=== PATIENT | male | born 1985 | race Caucasian/White ===

== ENCOUNTER 2017-03-08 03:14 | Emergency (ER) | payer OTHER ==
[~2017-03-08] VITALS: Ht 177.8 cm; Wt 79.4 kg
[2017-03-08] MEDS ORDERED: HUMALOG100 UNIT/1 SUBQ (03:27)
[2017-03-08] MEDS ORDERED: LANTUS100 UNIT/M SUBQ (03:28)
[2017-03-08] MEDS ORDERED: PAXIL10 MG PO (03:28)
[2017-03-08] MEDS ORDERED: CLONAZEPAM 0.50.5 M1 (03:37)
[2017-03-08 03:59] LABS: HEMATOCRIT 46.1 % (42.0-52.0); HEMOGLOBIN 15.9 gm/dL (14.0-18.0); MCH 31.2 pg (26.0-34.0); MCHC 34.5 g/dL (28.0-37.0); MCV 90.4 fL (80.0-100.0); RBC 5.1 mil/uL (4.50-6.00); RDW 13.2 % (10.5-14.5); WBC 11.1 thou/uL (4.0-11.0)
[2017-03-08 04:03] LABS: CALCIUM 9.1 mg/dL (8.5-10.1)
[2017-03-08 04:08] LABS: ALBUMIN 3.1 g/dL (3.4-5.0); TOTAL BILIRUBIN 0.3 mg/dL (<0.1-1.0); TOTAL PROTEIN 7.1 g/dL (6.4-8.2)
[2017-03-08 04:55] VITALS: BP 142/94
== END 2017-03-08 04:59 | disposition home or self-care (01) ==
LOC: ER 03:14
PROVIDERS: Emergency Medicine
DX: R19.7 Diarrhea, unspecified (principal); R05 Cough; E11.9 Type 2 diabetes mellitus without complications; Z79.4 Long term (current) use of insulin

== ENCOUNTER 2017-06-25 23:07 | Emergency (ER) | payer OTHER ==
[~2017-06-25] VITALS: Ht 175.3 cm; Wt 79.4 kg
[~2017-06-25 23:07] MED LIST: CLONAZEPAM 0.50.5 M1; HUMALOG100 UNIT/1 SUBQ; LANTUS100 UNIT/M SUBQ; PAXIL10 MG PO
[2017-06-25 23:52] LABS: ABSOLUTE NEUTROPHILS 7.4 thou/uL (1.4-8.2); EOSINOPHILS 1.8 % (0.0-3.0); HEMATOCRIT 44.2 % (42.0-52.0); HEMOGLOBIN 15.1 gm/dL (14.0-18.0); MCH 30.6 pg (26.0-34.0); MCHC 34.2 g/dL (28.0-37.0); MCV 89.5 fL (80.0-100.0); MONOCYTES 5.9 % (1.0-8.0); PLATELET COUNT 196 thou/uL (150-400); POLYS 79.3 % (36.0-66.0); RBC 4.94 mil/uL (4.50-6.00); RDW 14.3 % (10.5-14.5); WBC 9.4 thou/uL (4.0-11.0)
[2017-06-26 00:01] LABS: CALCIUM 9.8 mg/dL (8.5-10.1); CREATININE 1.4 mg/dL (0.7-1.3); POTASSIUM 4.2 mmol/L (3.5-5.1)
[2017-06-26 00:04] LABS: URINE BILIRUBIN NEGATIVE (Negative); URINE BLOOD 2+ (Negative); URINE CLARITY CLEAR; URINE COLOR YELLOW; URINE GLUCOSE-RANDOM* 3+ (Negative); URINE KETONES TRACE (Negative); URINE LEUKOCYTES-REFLEX NEGATIVE (Negative); URINE NITRITE-REFLEX NEGATIVE (Negative); URINE PROTEIN (DIPSTICK) 2+ (Negative); URINE SPECIFIC GRAVITY >= 1.030 (1.005-1.035); URINE UROBILINOGEN 0.2 E.U./dl (0.2-1.0)
[2017-06-26 00:06] LABS: ALBUMIN 3.6 g/dL (3.4-5.0); TOTAL BILIRUBIN 0.3 mg/dL (<0.1-1.0); TOTAL PROTEIN 8.4 g/dL (6.4-8.2)
[2017-06-26 00:14] LABS: CASTS None Seen /LPF (None Seen); MUCUS 0-3 Light strn/LPF (None Seen); SQUAMOUS None Seen /LPF (0-3)
[2017-06-26 00:15] LABS: BACTERIA-REFLEX None Seen /HPF (None Seen); CRYSTALS None Seen /LPF (None Seen); URINE RBC 3-10 Few /HPF (0-2)
[2017-06-26] MEDS ORDERED: ONDANSETRON HCL4 M2 PO (01:43)
[2017-06-26] MEDS ORDERED: FLOMAX0.4 MG PO (01:43)
[2017-06-26] MEDS ORDERED: NORCO 5-325 TA1 EACH PO (01:43)
[2017-06-26 02:02] VITALS: BP 147/93
== END 2017-06-26 02:03 | disposition home or self-care (01) ==
LOC: ER 23:07
PROVIDERS: Emergency Medicine
DX: N20.0 Calculus of kidney (principal); E11.9 Type 2 diabetes mellitus without complications; I48.91 Unspecified atrial fibrillation

== ENCOUNTER 2018-10-26 18:46 | Inpatient (IN) | payer OTHER ==
[~2018-10-26] VITALS: Ht 348 cm; Wt 77.1 kg
--- NOTE | ~2018-10-26 | HC ---
[facility] [place] [address] CONSULTATION Name: CARLOS STAHL Room #: 459-P ADM IN M.R.#: [id number] Admission: 10/26/18 Attend Phys: Holden Lee MD Discharge: Date of : 83 Report #: [id number] THIS REPORT FOR: //name// CC: JONNATHAN physician/PCP Holden Lee DATE OF SERVICE: 10/27/2018 WOUND CARE CONSULTATION NOTE REASON FOR CONSULTATION: A 33-year-old patient with diabetes mellitus type 1 and diabetic foot ulcers of right and left foot with history of MRSA. HISTORY OF PRESENT ILLNESS: The patient is a 33-year-old gentleman who works in the [employer] business. He is self-employed. He has been a patient at [facility] with treatment for diabetic ulcers of his feet, diagnosed with MRSA and treated with IV antibiotics. He had no followup treatment there. He presented to the Emergency Room with increased redness, swelling and tenderness of the feet, particularly the left and right great toe and the right plantar foot. White blood count is 11,600. The patient has been admitted by Dr. Lee. He was placed on intravenous vancomycin. Wound cultures have been taken. Wound care is consulted for his diabetic foot wounds. PAST MEDICAL HISTORY: 1. Diabetes mellitus type 1 without insulin pump. 2. History of MRSA of foot wounds. 3. Chronic nonhealing diabetic foot ulcers. 4. Atrial fibrillation with ablation. 5. History of kidney stones. 6. Cataracts. ALLERGIES: DYE. RADIOGRAPHIC TESTS: X-ray of the feet shows no bony abnormalities. MEDICATIONS: Include: 1. Levemir insulin. 2. Humalog. 3. Paxil. 4. Clonazepam. 5. Oxycodone. 6. Neurontin. PHYSICAL EXAMINATION: GENERAL: Shows a healthy, well-appearing young male. HEENT: Mucous membranes moist. [facility] [address] [place] [address] CONSULTATION Name: CARLOS STAHL Room #: 459-P ADM IN [facility].#: [id number] Admission: 10/26/18 Attend Phys: Holden Lee MD Discharge: Date of : 83 Report #: [id number] NECK: Supple. ABDOMEN: Soft and nondistended. HEART: Shows regular rate and rhythm. EXTREMITIES: Shows bilaterally symmetrical edema and erythema of the great toes, each great toe is swollen to approximately 50% greater than the normal size. Absence of nail bed of the right and left toe, the patient denies the nails have been removed. Diabetic foot ulcers are present on the plantar surface of both the right and left great toe with 1.5 cm x 1 cm ulcers with central deeper area, but no exposed bone. These are bilaterally symmetrical. The patient also has some erythema and erosion to dorsal surface of the nails of both toes and both feet. IMPRESSION: 1. Diabetes mellitus type 1 with nonhealing bilaterally symmetrical diabetic foot ulcers of the right and left great toe. 2. Cellulitis of the right and left great toe. 3. History of methicillin-resistant Staphylococcus aureus of the foot wounds. PLAN: Order topical Bactroban. Foam borders to both feet. Order wound cultures of both feet. Order an MRI of both feet to rule out osteomyelitis. Plain films were negative. Intravenous vancomycin. Dr. Cordero is to consider consulting podiatrists of choice. By: [id number] [id number] Federico Carranza MD /nt
[~2018-10-26 18:46] MED LIST changes: +FLOMAX0.4 MG PO; +NORCO 5-325 TA1 EACH PO; +ONDANSETRON HCL4 M2 PO
[2018-10-26 18:48] VITALS: BP 148/108
[2018-10-26] MEDS ORDERED: NEURONTIN600 MG PO (18:54)
[2018-10-26] MEDS ORDERED: OXYCODONE HCL E15 MG PO (18:54)
[2018-10-26 19:53] LABS: ABSOLUTE NEUTROPHILS 8.3 thou/uL (1.4-8.2); BASOPHILS 0.8 % (0.0-2.0); EOSINOPHILS 2.3 % (0.0-3.0); HEMATOCRIT 40.9 % (42.0-52.0); LYMPHOCYTES 14.8 % (24.0-44.0); MCH 30.5 pg (26.0-34.0); MCHC 34.3 g/dL (28.0-37.0); MONOCYTES 10.3 % (1.0-8.0); PLATELET COUNT 229 thou/uL (150-400); POLYS 71.8 % (36.0-66.0); RDW 14.1 % (10.5-14.5); WBC 11.6 thou/uL (4.0-11.0)
[2018-10-26 19:57] LABS: CALCIUM 9.8 mg/dL (8.5-10.1); CREATININE 1.5 mg/dL (0.7-1.3); POTASSIUM 4.1 mmol/L (3.5-5.1)
[2018-10-26 20:03] LABS: TOTAL BILIRUBIN 0.3 mg/dL (<0.1-1.0); TOTAL PROTEIN 8.6 g/dL (6.4-8.2)
[2018-10-26 20:05] LABS: TROPONIN-I <0.06 ng/mL (<0.06)
[2018-10-26 20:26] LABS: URINE BLOOD 1+ (Negative); URINE CLARITY CLEAR; URINE COLOR YELLOW; URINE GLUCOSE-RANDOM* 3+ (Negative); URINE KETONES 1+ (Negative); URINE LEUKOCYTES-REFLEX NEGATIVE (Negative); URINE NITRITE-REFLEX NEGATIVE (Negative); URINE PROTEIN (DIPSTICK) 2+ (Negative); URINE SPECIFIC GRAVITY >= 1.030 (1.005-1.035); URINE UROBILINOGEN 0.2 E.U./dl (0.2-1.0)
[2018-10-26 20:31] LABS: ICTOTEST (BILI CONFIRMATORY) Negative (Negative); URINE BILIRUBIN NEGATIVE (Negative)
[2018-10-26 20:37] LABS: CASTS None Seen /LPF (None Seen); MUCUS 0-3 Light strn/LPF (None Seen); SQUAMOUS None Seen /LPF (0-3)
[2018-10-26 20:38] LABS: BACTERIA-REFLEX None Seen /HPF (None Seen); CRYSTALS None Seen /LPF (None Seen); URINE RBC 0-2 Rare /HPF (0-2); URINE WBC-REFLEX None Seen /HPF (0-5)
--- NOTE | 2018-10-26 22:15 | NUR ---
MEDIC KECIA WAS ABOUT TO GIVE INSULIN TO THE PT, WHEN HE INFORMED HER THAT HE ALREADY HAD TAKEN HIS OWN. KECIA STATED THAT SHE PREVIOUSLY INFORMED THE PT TO NOT ADMINISTER ANY OF HIS OWN MEDICATIONS. ARMORED CAR DRIVER NOTIFIED, AND SECURITY NOTIFED. SECURITY SEARCHED THE PT'S BELONGINGS.
[2018-10-26 23:14] VITALS: BP 143/104
[2018-10-26 23:22] VITALS: BP 151/98
[2018-10-26 23:47] VITALS: BP 151/98
[2018-10-26] MEDS ORDERED: LEVEMIR SUBQ (23:58)
--- NOTE | 2018-10-27 03:58 | NUR ---
ADMITTED FROM ER UNDER 'S CARE. AXOX4. BLE DIABERIC ULCERS. PICTURES TAKEN, INITIAL TX DONE. ISOLATIONB FOR MRSA. SEEN BY DIRECTOR [employer]ER[employer]ION PROSTHETIC LAB TECHNICIAN FOR NIKKIE. HOME MEDICATION SENT TO PHARMACY. NO S/S ACUTE DISTRESS NOTED OR REPORTED AT THIS TIME. WILL CONT TO MONITOR FOR ANY CHANGES IN CONDITION.
[2018-10-27 05:04] VITALS: BP 154/106
[2018-10-27 08:30] VITALS: BP 168/105
--- NOTE | 2018-10-27 11:45 | EKG ---
[address] [place] [address] ELECTROCARDIOGRAM REPORT Name: CARLOS STAHL Room #: 459-P ADM IN M.R.#: [id number] Admission: 10/26/18 Attend Phys: Holden Lee MD Discharge: Date of : 83 Report #: [id number] THIS REPORT FOR: //name// [facility] ED Test Date: 2018-10-26 Test Time: 19:33:38 Pat Name: CARLOS STAHL Department: Room: 45 Gender: M Geophysicist: JOSÉ MIGUEL : 1985 Requested By: Leeann Camacho Order Number: [id number] MD: Silvino Russ Measurements Intervals Sweet Rate: 121 P: 48 NM: 133 QRS: 44 QRSD: 79 T: 12 QT: 303 QTc: 430 Interpretive Statements Sinus tachycardia Probable left atrial enlargement Low voltage, precordial leads No previous ECG available for comparison Electronically Signed On 10-27-2018 11:45:06 CDT by Silvino Russ [email or web address] <ELECTRONICALLY SIGNED> By: Silvino Russ MD 10/27/18 1145 1933 1933 Silvino Russ MD /MADAY
--- NOTE | 2018-10-27 13:30 | NUR ---
ASSUMED CARE OF PATIENT AT 0715, PATIENT ALERT AND ORIENTED X 4. PATIENT UP AD MAXWELL IN HIS ROOM. PATIENT HAS BILATERAL FOOT WOUNDS. MRSA ISOLATION. PATIENT HAS BBEN VERY FUSSY AND IRRITABLE. PATIENT HAS REFUSED INSULIN DOSES, AND NON-COMPLIANT WITH MEALS. PATIENT WANT REGULAR DIET, DR BENDER STATES NO. PATIENT HAS DRESSINGS TO BILATERAL FEET, WOUND DOCTOR SAW PATIENT THIS AFTERNOON, DRESSING CHANGED. WOUND CARE DOCTOR ORDERED MRI OF BILATERAL FEET, WILL BE DONE TOMORROW PER MRI. PATIENT HAS LEFT FOREARM IV, RECEIVED VANCO IV. WILL CONTINUE TO MONITOR.
[2018-10-27 15:00] VITALS: BP 145/101
[2018-10-27 19:42] VITALS: BP 150/103
[2018-10-28 01:05] LABS: GLYCOHEMOGLOBIN (HGB A1C) 9.1 % (4.8-5.6)
--- NOTE | 2018-10-28 04:26 | NUR ---
PATIENT ALERT AND ORIENTED X4. UP ADLIB IN ROOM. DENIES PAIN. DRESSINGS CHANGED ON BILATERAL FEET. BLOOD SUGAR AT 2100 WAS 190 AND PATIENT WAS TO RECEIVE STANDING ORDER OF LANTUS 30UNITS AND 8UNITS OF LISPRO PER SLIDING SCALE. HOWEVER, PATIENT REFUSED 8UNITS OF LISPRO. AT APPROX 0045 PATIENT CALLED THIS NURSE AND STATED THAT HIS BS WAS UP AND HE COULD FEEL IT AND REQUESTED THAT HIS BS BE TAKEN AGAIN. THIS WAS DONE AND IT WAS 316. PATIENT STATED THAT HE WOULD TAKE THE 8UNITS OF LISPRO THAT HE HAD REFUSED EARLIER AND THIS WAS GIVEN. PATIENT REMAINS UPSET ABOUT ANOTHER PATIENT COMING IN HIS BATHROOM WHILE HE WAS TAKING A SHOWER DURING THE DAY AND STATES HE IS NOT WANTING TO GO TO SLEEP. THIS NURSE ASSURED HIM THAT THE PATIENT WAS ASLEEP AND WAS MONITORED AND THAT HE HIMSELF COULD GET A GOOD NIGHTS SLEEP. PATIENT HAD VISITORS IN THE EARLY EVENING AND REMAINS IN ISOLATION AT THIS TIME. WILL MONITOR.
[2018-10-28 09:59] VITALS: BP 133/92
--- NOTE | 2018-10-28 11:51 | NUR ---
Nutrition: Seen per consult for diet instructions. Pt on a carb controlled diet, having a difficult time with diet, wanting regular. To remain on strict diet though. BG 150 this AM, but ranged 140-425 mg/dl per 10/27 (average BG yesterday 284 per 6 readings). A1c high at 9.1%. On 30 units HS Lantus, SSI. Here w/ BLE wounds (DM foot wounds). At a healthy wt, BMI 23.7. Great appetite. Focused on need to evenly distribute carbs, as pt eating very high carb breakfast, then super light carb lunches/dinners w/ salmon, chicken and lots of green vegetables. Suggested ways to lower CHO, add protein though eggs, nut butter in the AM. He understands that carbs break down into sugars and raise BGs, understands food labels. Took multiple reinforcement to inform him what he thought was high protein, is high carb. See RD education note. With long 20-30 min discussion and education complete, low nutrition risk.
--- NOTE | 2018-10-28 13:58 | NUR ---
ORDERS RECIEVED FOR EVAL AND TREAT. Pt IS UP AD MAXWELL. SPOKE WITH Pt WHO STATES HAVING NO DIFFICULTY WITH ANY MOBILITY AND DOESN'T NEED A P.T. EVAL. Pt DECLINING FORMAL P.T. EVAL BUT PER NURSING HAVING NO DIFFICULTY WITH MOBILITY
--- NOTE | 2018-10-28 15:02 | NUR ---
ORDER REC'D FOR OT EVAL AND TREAT. EVAL INITIATED W/EXPLANATION OF OCCUPATIONAL THERAPY. PATIENT DENIES NEED FOR OT STATING THAT HE IS INDEPENDENT W/SELFCARE AND FUNCTIONAL MOBILITY. NSG NOTES REFLECT THIS AND PHYSICAL THERAPY HAS DISCHARGED. WILL D/C OT.
[2018-10-28 19:28] VITALS: BP 142/102
--- NOTE | 2018-10-28 19:40 | NUR ---
PT STABLE THROUGHOUT SHIFT. PT VERY INSISTENT ON WHEN HIS BLOOD SUGAR IS CHECKED AND HOW MUCH INSULIN HE SHOULD HAVE. PT NONCOMPLIANT WITH BOTH INSULIN AND DIET (ORDERED PIZZA WHEN HIS MOTHER ARRIVED). PT VERY BELLIGERENT WHIN NURSE ATTEMPTS FO EDUCATE REGARDING TIMING AND DOSAGE OF ACCU CHECKS AND INSULIN. C/O PAIN, ADDRESSED WITH MEDICATION.
--- NOTE | 2018-10-29 03:34 | NUR ---
PATIENT LEFT AND RIGHT GREAT TOE DRESSING IS C/D/I. PATIENT NON COMPLIANT WITH INSULIN BLOOD SUGAR WAS 315 PATIENT REQUESTED 1/2 OF SHORT ACTING INSULIN. PATIENT HAD LANTUS PER ORDER. PATIENT HAD A SHOWER. PATIENT IN BED ASLEEP AT THIS TIME BREATHING REGULAR AND UNLABOURED.
[2018-10-29 07:34] VITALS: BP 123/57
[2018-10-29 08:05] VITALS: BP 142/98
[2018-10-29 08:42] LABS: HEMATOCRIT 38.1 % (42.0-52.0); HEMOGLOBIN 12.9 gm/dL (14.0-18.0); MCH 29.9 pg (26.0-34.0); MCHC 33.8 g/dL (28.0-37.0); MCV 88.6 fL (80.0-100.0); RBC 4.3 mil/uL (4.50-6.00); RDW 13.4 % (10.5-14.5); WBC 5.9 thou/uL (4.0-11.0)
[2018-10-29 08:53] LABS: CALCIUM 9.4 mg/dL (8.5-10.1); CREATININE 0.9 mg/dL (0.7-1.3); MAGNESIUM 1.9 mg/dL (1.8-2.4)
[2018-10-29 15:01] VITALS: BP 140/97
--- NOTE | 2018-10-29 17:12 | NUR ---
PT ADMITTED RELATED TO BLE WOUNDS. CM REVIEWED CHART AND SPOKE WITH CARE TEAM. CM MET WITH PT AT BEDSIDE THIS DAY. PT IS A&O X4. CM ROLE INTRODCUED. PT INDICATED HE LIVES IN A HOUSE WITH A ROOMMATE. PT INDICATED THERE ARE NO STEPS TO ENTER AND 8 STEPS INSIDE. PT INDICATED HE HAD BEEN INDEPENDENT WITH GAIT AND ADLS DIRECTOR SOFTWARE. PT INDICATED HIS PCP IS DR. DARLING AND HE SEES HIM IN [facility]. PT INDICATED HE HAS HEALTH INSURANCE AND THAT HE HAD PROVIDED INSURANCE CARE UPON ADMISSION. CM COPPIED CARD. PT INDICATED HE WOULDN'T BE ABLE TO AFFORD HIS INSULIN UPON DC. CM SENT ORDER AND INSURANCE CARD TO OP PHARM AND THEY PRICED IT AT $352.00 CM REQUESTED AND RECIEVED PERMISSION TO VOUCHER INSULIN. PT WILL HAVE TO PICK IT UP UPON DC. IT IS ANTICIPATED THAT PT WILL DC HOME WIHT OP FOLLOW UP WITH [facility] UPON DC. NO OTHER CM INTERVENTION INDICATED CASE CLOSED.
--- NOTE | 2018-10-29 19:56 | NUR ---
Assumed pt care this am, isolation maintained. Wound care and dressing done. Pt insists on having his own regiment when it comes to his blood sugars in insulin and would want to manege this on his own. Pt is up at rahul and able to ambulate with a steady gait. Seen by Dr. Chaves awaiting recommendations prior to dc, CM worked on medication and other dc needs. Isolations maintained. Pt would verbalize pain in his head or foot , managed with medication. POC followed, vs stable. Pt verbalized he is not inclined for IV abx since he has "things to do and is loosing money". Endorsed to the night nurse.
[2018-10-29 19:58] VITALS: BP 147/100
--- NOTE | 2018-10-30 03:18 | NUR ---
ASSUMED CARE AROUND 1899. AXOX4. IV REPLACED TO LAC. BLE WOUNDS WERE FOUND UNCOVERED. PER DAY RN, PT TOOK THE DRESSINGS OFF. REFUSED DRESSING ON BLE WOUNDS. ACCEPTED GENTAMYCIN CREAM. VERY NON COMPLIANT ABOUT BLOOD GLUCOSE CONTROL. IN THE BEGINNING, REFUSED HS LISPRO THEN WANTED TO HAVE ICE CREAMS AND CRAKCKERS. AROUND 2229, DEMANDED AN BLOOD GLUCOSE CHECK AND RESULT WAS 300. INSTEAD OF FOLLOWING THE STANDING ORDERM, PT DEMANDED THAT HE GETS 6 UNITS OF LISPRO. CALLED SKIP MINER BLASTING WARP PLACER FOR KARU AND ADMINISTERED 6 UNITS. NO S/S ACUTE DISTRESS NOTED OR REPORTED AT THIS TIME. WILL CONT TO MONITOR FOR ANY CHANGES IN CONDITION.
[2018-10-30 07:36] VITALS: BP 130/98
[2018-10-30] MEDS ORDERED: LINEZOLID600 MG PO (15:06)
[2018-10-30] MEDS ORDERED: ACETAMINOPHEN325 M1 PO (15:06)
[2018-10-30 15:26] VITALS: BP 130/98
--- NOTE | 2018-10-30 16:45 | NUR ---
PT REFUSED IV ABX AND WAS DISCHARGED ON ORALS. CM VOUCHERD PT'S INSULIN IN THE AMOUNT OF $352. AND SOME CENTS. IT WAS PROVIDED TO PT. CM PROVIDED PT WITH FORM TO COMPLETE WITH HIS NEW INSURANCE INFO TO FAX BACK TO THE HOSPITAL. NO OTHER CM INTERVENTION INDICATED. CASE CLOSED.
--- NOTE | 2018-10-30 20:55 | NUR ---
Received awake on bed. Due medications given as prescribed. A+Ox4. On room air. With SL at L AC- patent and intact. On blood sugar monitoring- taken and recorded, insulin sliding scale given as prescribed, no issues re: giving of insulin to pt, he did not refused his sliding scale doses. With diabetic ulcers on bilateral feet, no dressings noted; pt refused to have dressings despite explanation the need to have dressings and as per advise of the wound doctor pt still refused. Pt up ad rahul. Wound photos taken today, gentamycin cream applied as ordered, but pt still refused to have dressings on. Maintained on isolation- MRSA. Vital signs stable. Pt seen by Dr Nugent this am, a/w Dr Chaves's recommendation re: antibiotics. Pt seen by Dr Chaves this AM, he talked to the pt and according to him pt refused all options given to him such as IV antibiotics and preferred to have oral antibiotics instead, as per Dr Chaves's instructions, pt to have Linezolid 600mg PO dose now then to monitor for any side effects such as nausea since pt is on Paroxetine and to lower dosage to 10mg while on antibiotics- Dr Nugent informed and asked re: discharge orders. Dr Nugent put in discharge orders. Discharge instructions, follow up schedule, prescription(Dr Nugent asked Dr Martin to sign on his behalf since he already left the hospital) given and instructed to pt. No side effects of Linezolid noted. IV discontinued. CM seen pt, no home health, vouchered for pt's insulin- given to pt. Pt discharged from unit via wheelchair by OIL AND GAS SPECIALIST, passed by inpatient pharmacy to claim meds- Pharmacy staff informed that pt did not have any consent form on his chart, gave pt's name and bag number and said pt can just pass by and get his home medications which was there for safekeeping; meds claimed by pt as per OIL AND GAS SPECIALIST.
--- NOTE | 2018-10-30 22:09 | HC ---
[facility] [place] [address] CONSULTATION Name: CARLOS STAHL Room #: 459-P [facility] IN M.R.#: [id number] Admission: 10/26/18 Attend Phys: Jeremy Nugent MD Discharge: 10/30/18 Date of : 83 Report #: [id number] THIS REPORT FOR: //name// CC: JONNATHAN physician/PCP Jeremy Nugent DATE OF SERVICE: 10/29/2018 REASON FOR CONSULTATION: I was asked to evaluate concerning bilateral first toe chronic wounds with secondary infection in the setting of diabetes. HISTORY OF PRESENT ILLNESS: A 33-year-old diabetic with peripheral neuropathy who has had chronic wounds to the plantar aspect of both first toes. He has noticed this over the last 9 months. He had been treated at [facility] within the last several months. Diagnosed with MRSA. Received 2 weeks of antibiotic therapy. Wounds remained in place involving the plantar distal toes. He has also had loss of his toenails and wounds to the distal aspect of his right third toe. Denies any fever, chills or sweats. Blood sugar control, he notes has been less than 200 fasting on insulin. He reports within the last year his hemoglobin A1c of 7.4. Denies any fever, chills or sweats. He notes no specific trauma, although he has not been offloading the feet. REVIEW OF SYSTEMS: Denies any other cardiopulmonary, GI or complaints. Full 10-point review was negative other than what is reported above. PAST MEDICAL HISTORY: Diabetes, MRSA foot wound infection, atrial fibrillation with ablation, kidney stones, cataract extraction. ALLERGIES: CONTRAST DYE. MEDICATIONS: As noted on his MAR, now on vancomycin. FAMILY HISTORY: Noncontributory. SOCIAL HISTORY: Nonsmoker, no significant alcohol intake. Denies street drugs. PHYSICAL EXAMINATION: VITAL SIGNS: Afebrile and hemodynamically stable. GENERAL: He is alert, cooperative and pleasant, in no acute distress. HEENT: Eyes, without scleral icterus. Mouth without mucositis. NECK: Supple. LUNGS: Clear. HEART: Regular, without murmur. ABDOMEN: Soft, nontender, no hepatosplenomegaly or mass. EXTREMITIES: With ulcerations involving the distal right third toe. Lack of nails involving all of his toes. Full thickness ulcerations to the plantar [address] [address] CONSULTATION Name: CARLOS STAHL Room #: 459-P [facility] IN [facility].#: [id number] Admission: 10/26/18 Attend Phys: Jeremy Nugent MD Discharge: 10/30/18 Date of : 83 Report #: [id number] aspect of both distal first toes. Pulses were palpable in the feet, 4+ posterior tibial and dorsalis pedis bilaterally. Reasonable capillary refill distally. Cranial nerves intact. Strength in his upper and lower extremities normal. Sensation decreased in both feet distally to fine touch. Position sense also diminished. Mood normal. LABORATORY STUDIES: Culture from his wounds are pending. Gram stain shows many gram-positive cocci, a few gram-positive bacilli. ESR 68. Sodium 136, potassium 4, bicarbonate 29, creatinine 0.9. Hemoglobin 12.9, white count 5.9, platelet count 211,000. IMAGING: MRI scan of both feet showed reactive changes to the left first distal toe and early osteomyelitis changes to the distal phalanx, right first toe. No evidence of abscess. No cortical destruction. Blood cultures are negative today. Vancomycin trough 6. Hemoglobin A1c 9.1. IMPRESSION: Bilateral diabetic, neuropathic foot wounds with secondary infection. The right first distal phalanx has changes of early osteomyelitis on MRI scan. I am concerned that these wounds have not healed over the last 9 months despite previous course of IV antibiotic therapy. I am suspecting noncompliance with pressure relief may be a significant factor here. He has palpable pulses in both feet, therefore, suspecting microvascular disease due to his diabetes. RECOMMENDATION: We will continue current IV antibiotic therapy. Continue localized wound care. Continue offloading the feet. Would arrange IV antibiotic therapy for outpatient infusion. I discussed this with the patient who was reluctant to commit to a PICC line and IV antibiotic therapy. He desired oral antibiotic therapy and possibly if Surgery would be involved to have tertiary referral for a second opinion. At this point, I would think it would be reasonable to work mostly on offloading and support with either oral or IV antibiotic therapy. I would expect IV therapy, however, to give the best option for satisfactory outcome. We may have to work with the patient, however, for he has definite opinion on his treatment. He will notify me in the a.m. as to his decision whether to proceed with IV antibiotic therapy or continue with the oral antibiotic therapy. <ELECTRONICALLY SIGNED> By: Ishmael Chaves MD 10/30/18 2209 [id number] Ishmael Chaves MD /nt
== END 2018-10-30 17:00 | disposition home or self-care (01) | DRG 872 ==
LOC: ER 18:46 → EROBS 20:46 → 4W 20:46
PROVIDERS: Nurse Practitioner Acute Care; Physician Assistant; ADMIT Internal Medicine
DX: A41.9 Sepsis, unspecified organism (principal); L03.115 Cellulitis of right lower limb; L03.116 Cellulitis of left lower limb; E44.0 Moderate protein-calorie malnutrition; M86.8X7 Other osteomyelitis, ankle and foot; E10.22 Type 1 diabetes mellitus with diabetic chronic kidney disease; E10.69 Type 1 diabetes mellitus with other specified complication; N18.3 Chronic kidney disease, stage 3 (moderate); F41.9 Anxiety disorder, unspecified; E10.51 Type 1 diabetes mellitus with diabetic peripheral angiopathy without gangrene; B95.62 Methicillin resistant Staphylococcus aureus infection as the cause of diseases classified elsewhere; E10.621 Type 1 diabetes mellitus with foot ulcer; I48.91 Unspecified atrial fibrillation; L97.529 Non-pressure chronic ulcer of other part of left foot with unspecified severity; L97.519 Non-pressure chronic ulcer of other part of right foot with unspecified severity; Z87.442 Personal history of urinary calculi; Z91.041 Radiographic dye allergy status; Z98.41 Cataract extraction status, right eye; Z98.42 Cataract extraction status, left eye; Z83.3 Family history of diabetes mellitus; Z91.14 Patient's other noncompliance with medication regimen
CPT/HCPCS: 10040; 10045

== ENCOUNTER 2019-01-21 18:59 | Inpatient (IN) | payer OTHER ==
[~2019-01-21] VITALS: Ht 177.8 cm; Wt 71.0 kg
--- NOTE | ~2019-01-21 | O ---
[facility] [place] [address] OPERATIVE REPORT Name: CARLOS STAHL Room #: 449-I ADM IN M.R.#: [id number] Admission: 01/21/19 Attend Phys: Jeremy Nugent MD Discharge: Date of : 83 Report #: [id number] THIS REPORT FOR: //name// CC: [facility] physician/PCP Jeremy Nugent PREOPERATIVE DIAGNOSES: 1. Right great toe distal phalanx osteomyelitis. 2. Left great toe distal phalanx osteomyelitis. PROCEDURES PERFORMED: 1. Right great toe amputation through the distal phalanx. 2. Left great toe amputation through the distal phalanx. SURGEON: Jes Villagomez MD ANESTHESIA: General mask anesthesia. ESTIMATED BLOOD LOSS: 5 mL. TOURNIQUET TIME: 42 minutes on the right, 33 minutes on the left COMPLICATIONS: None. CONDITION: Stable. DISPOSITION: Recovery room. INDICATIONS: The patient is a 33-year-old male with the above-mentioned diagnosis. He elects for operative treatment. The risks, benefits, alternatives and complications were discussed including, but not limited to wound healing problems, inability to resolve the infection necessitating more surgery, nail deformity or stump pain. We have previously discussed multiple times the patient's desire to keep as much of the length of the toe as possible. Therefore, the amputation will be distal to the plantar ulcers. The correct extremities were identified and labeled by myself after verbal confirmation from the patient as well as visual confirmation and signed informed consent. His mother was also present at his bedside. DESCRIPTION OF PROCEDURE: The patient was brought back to the operating room and placed on the operating table in a supine position. He has been on antibiotics. Tourniquets were placed over padding on the patient's both lower extremities. Both lower extremities were sterilely prepped and draped in the usual fashion. Final timeout was taken to verify correct patient, operative procedure, operative site, all concurred. First, the attention was placed to the right. The right leg was elevated, exsanguinated proximal to the ankle and the tourniquet inflated to 250 mmHg. Next, a dorsal incision was made from the [address] [address] OPERATIVE REPORT Name: CARLOS Room #: 449-I ADM IN M.R.#: [id number] Admission: 01/21/19 Attend Phys: Jeremy Nugent MD Discharge: Date of : 83 Report #: [id number] level of the IP joint all the way to the tip of the toe. The distal phalanx and dorsal toe nail and skin was removed. The remaining tissue looked to be in good condition. The flap was then fashioned for an appropriate closure. Next, attention was placed in the left lower extremity. Left lower extremity was elevated, exsanguinated proximal to the ankle and the tourniquet inflated. The same dorsal incision was made, distal phalanx was removed without difficulty. The remaining tissue looked to be in good condition. Both wounds were irrigated with a total of 3 liters of antibiotic saline using a Pulsavac. Once this was done to satisfaction, the wounds were then closed with a combination of detensioning sutures and simple sutures using 3-0 nylon suture. The tourniquets were then deflated. There was an appropriate amount of blood flow to the wounds. The wounds were dressed with Xeroform and sterile gauze. He was placed in a bulky dressing. All toes were pink with brisk capillary refill at the conclusion of the case after deflation of tourniquet. All sponge and needle counts were correct. The patient was transferred to postoperative recovery room in stable condition. By: [id number] 1037 Jes Villagomez MD /bernard
[~2019-01-21 18:59] MED LIST changes: +ACETAMINOPHEN325 M1 PO; -CLONAZEPAM 0.50.5 M1; +CLONAZEPAM 0.50.5 M1 PO; +LEVEMIR SUBQ; +LINEZOLID600 MG PO; +NEURONTIN600 MG PO; +OXYCODONE HCL E15 MG PO
[2019-01-21 19:00] VITALS: BP 162/105
[2019-01-21 20:02] LABS: ABSOLUTE NEUTROPHILS 6.7 thou/uL (1.4-8.2); BASOPHILS 1.1 % (0.0-2.0); EOSINOPHILS 1.5 % (0.0-3.0); HEMATOCRIT 38.2 % (42.0-52.0); LYMPHOCYTES 16.7 % (24.0-44.0); MCH 30.4 pg (26.0-34.0); MCV 89.4 fL (80.0-100.0); MONOCYTES 8.8 % (1.0-8.0); PLATELET COUNT 220 thou/uL (150-400); POLYS 71.9 % (36.0-66.0); RBC 4.28 mil/uL (4.50-6.00); WBC 9.3 thou/uL (4.0-11.0)
[2019-01-21 20:10] LABS: CALCIUM 9.7 mg/dL (8.5-10.1); CREATININE 1.2 mg/dL (0.7-1.3); POTASSIUM 3.7 mmol/L (3.5-5.1)
--- NOTE | 2019-01-21 21:19 | NUR ---
PT IS ARGUMENTIVE AND STATING THAT HE HAS NOT BEEN UPDATED AND HAS NOT BEEN SEEN BY A DOCTOR. DR. MEEHAN WAS NOTIFIED AND THE PROVIDER CONFIRMS THAT SHE HAS TALKED TO HIM AND DOES NOT NKOW WHY HE HAS THIS MISUNDERSTANDING. DR. MEEHAN AT BEDSIDE SPEAKING TO PATIENT AT THEM MOMENT
[2019-01-21 22:12] LABS: URINE BILIRUBIN NEGATIVE (Negative); URINE BLOOD 1+ (Negative); URINE CLARITY CLEAR; URINE COLOR YELLOW; URINE GLUCOSE-RANDOM* 3+ (Negative); URINE KETONES 1+ (Negative); URINE LEUKOCYTES-REFLEX NEGATIVE (Negative); URINE NITRITE-REFLEX NEGATIVE (Negative); URINE PROTEIN (DIPSTICK) 2+ (Negative); URINE UROBILINOGEN 0.2 E.U./dl (0.2-1.0)
[2019-01-21 22:21] LABS: AMP/METHAMP Negative (Negative); BARBITURATES Negative (Negative); BENZODIAZEPINES Negative (Negative); COCAINE Negative (Negative); METHADONE Negative (Negative); OPIATES Negative (Negative); PCP Negative (Negative)
[2019-01-21 22:45] LABS: BACTERIA-REFLEX 1-9 Few /HPF (None Seen); CASTS None Seen /LPF (None Seen); CRYSTALS None Seen /LPF (None Seen); MUCUS 4-6 Moderate strn/LPF (None Seen); SQUAMOUS 0-3 Few /LPF (0-3); URINE RBC 3-10 Few /HPF (0-2); URINE WBC-REFLEX 0-5 Rare /HPF (0-5)
[2019-01-21 23:10] VITALS: BP 155/103
[2019-01-21 23:23] VITALS: BP 167/107
[2019-01-22] VITALS (7 sets, daily range): BP systolic 152–169; BP diastolic 102–119
[2019-01-22 01:57] LABS: HEMATOCRIT 36.7 % (42.0-52.0); HEMOGLOBIN 12.1 gm/dL (14.0-18.0); MCH 29.8 pg (26.0-34.0); MCHC 32.9 g/dL (28.0-37.0); MCV 90.8 fL (80.0-100.0); RBC 4.05 mil/uL (4.50-6.00); RDW 13.8 % (10.5-14.5); WBC 9.6 thou/uL (4.0-11.0)
[2019-01-22 02:01] LABS: CALCIUM 8.6 mg/dL (8.5-10.1); CREATININE 1.3 mg/dL (0.7-1.3); POTASSIUM 3.8 mmol/L (3.5-5.1)
--- NOTE | 2019-01-22 11:39 | NUR ---
PT PUT AIRCRAFT ORDNANCE TECHNICIAN LIGHT WITH COMPLAINTS OF HIGH BP, BLOOD SUGAR, AND A HEADACHE. BP WAS 155/116, GLU WAS 240, HEADACHE 2/10. DISCUSSED HYDROLYZINE FOR BP BUT PT SAID HE THOUGHT IT WAS DUE TO INCREASED ANXIETY, REQUESTED CLONAZEPAM. SLIDING SCALE OF 4 UNITS FOR 240 READING BUT PT REQUESTED 12 UNITS BASED ON WHAT HES EATING FOR LUNCH. GAVE TYLENOL FOR HEADACHE REQUESTED.
--- NOTE | 2019-01-22 11:49 | NUR ---
PT ALERT AND ORIENTED TIMES FOUR, WITH VERY BULNTED AFFECT. BP ELEVATED MEDS GIVEN DR LIM, OTHER VSS. PT C/O HEADACHE PRN AIN MEDICATIONS GIVEN WITGH SOME RELEIF. PT DENIES SOA. PT TOLERATES MEDS AND MEALS. PT UP AB MAXWELL WITH STEADY GAIT. WILL CONTINUE TO MONITOR.
[2019-01-23 00:27] VITALS: BP 175/120
--- NOTE | 2019-01-23 03:49 | NUR ---
ASSUMED CARE OF PT AT 1900HRS. PT IS AOX4 AND LETS NEEDS BE KNOWN. PT IS UP AD MAXWELL. PT HAD HIGH BP THIS SHIFT. PRN MEDS WERE USED TO TREAT BP WITHOUT SUCCESS. GRANITE WORKER WAS NOTIFIED AND NEW ORDERS RECEIVED AND ADMINISTERED. PT MANAGES HIS OWN SLIDING SCAILE INSULIN. ABX TREATMENT CONTINUED. PT WAS ABLE TO GET COMFORTABLE AND SLEEP PART OF THE SHIFT. WILL CONTINUE TO MONITOR FOR CHANGES.
[2019-01-23 04:45] VITALS: BP 159/112
[2019-01-23 05:43] LABS: HEMATOCRIT 35.5 % (42.0-52.0); HEMOGLOBIN 11.7 gm/dL (14.0-18.0); MCH 29.6 pg (26.0-34.0); MCV 89.7 fL (80.0-100.0); RBC 3.96 mil/uL (4.50-6.00); WBC 5.7 thou/uL (4.0-11.0)
[2019-01-23 06:05] LABS: CALCIUM 9.4 mg/dL (8.5-10.1); CREATININE 0.9 mg/dL (0.7-1.3); MAGNESIUM 1.8 mg/dL (1.8-2.4); POTASSIUM 3.4 mmol/L (3.5-5.1)
[2019-01-23 06:08] LABS: GLYCOHEMOGLOBIN (HGB A1C) 8.7 % (4.8-5.6)
[2019-01-23 07:35] VITALS: BP 133/96
--- NOTE | 2019-01-23 09:27 | HC ---
[facility] [place] [address] CONSULTATION Name: CARLOS STAHL Room #: 449-I ADM IN ..#: [id number] Admission: 01/21/19 Attend Phys: Jeremy Nugent MD Discharge: Date of : 83 Report #: [id number] THIS REPORT FOR: //name// CC: JONNATHAN physician/PCP Jeremy Nugent DATE OF SERVICE: 01/22/2019 REASON FOR CONSULTATION: Uncontrolled type 1 diabetes mellitus. HISTORY OF PRESENT ILLNESS: This is a 33-year-old male patient whose medical background is significant for type 1 diabetes mellitus diagnosed over 20 years ago. The patient's diabetic complications have been complicated by issues of diabetic neuropathy, recurrent foot ulcers and cellulitis, cataracts and potentially a chronic kidney disease. The patient was admitted for the issue of intermittent pain of his left great toe with associated chills and cough and was subsequently admitted for further management and monitoring. The patient's most recent insulin regimen consists of Levemir insulin 30 units at bedtime in addition to NovoLog insulin taken as per sliding scale. When asked about the specifics of his scale method, the patient was fairly vague and said that he would occasionally not injected for some meals and would do for others depending on his blood sugar. He maintains that his blood glucose values have run between 180-210 for the most part. He does not have major issues with hypoglycemia. He insists that his hemoglobin A1c 6 months ago was 7.3%. REVIEW OF SYSTEMS: CONSTITUTIONAL: Fatigue, tiredness, but not weight changes. HEENT: Negative for sore throat, sinus pain, ear drainage. PULMONARY: Negative for shortness of breath, cough or hemoptysis. CARDIAC: Negative for chest pain, palpitations, syncope, presyncope. GASTROINTESTINAL: Negative for abdominal pain, nausea, vomiting or changes in bowel movement frequency. NEUROLOGY: Noted for baseline issues with diabetic neuropathy, numbness, tingling, but not seizure activity, frequent severe headaches or loss of consciousness. PSYCHIATRIC: Negative for delusions, hallucinations. The patient notes a baseline anxiety. SKIN: Recurrent issues with foot cellulitis and ulcers. Otherwise, review of systems noncontributory other than those mentioned in HPI. PAST MEDICAL HISTORY: 1. Type 1 diabetes mellitus. 2. Peripheral diabetic neuropathy. 3. Hypertension. 4. Chronic kidney disease. [address] [address] CONSULTATION Name: CARLOS STAHL Room #: 449-I [facility] IN ..#: [id number] Admission: 01/21/19 Attend Phys: Jeremy Nugent MD Discharge: Date of : 83 Report #: [id number] 5. Atrial fibrillation, status post ablation. 6. Anxiety. 7. Recurrent foot ulcers. 8. History of kidney stones. OUTPATIENT MEDICATIONS: Include Levemir insulin 30 units at bedtime, NovoLog insulin as per sliding scale, Paxil 10 mg daily, gabapentin t.i.d., clonazepam 1 tab b.i.d. anxiety, oxycodone ER 50 mg q.i.d. p.r.n. ALLERGIES: No known drug allergies. FAMILY HISTORY: Noncontributory. 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 Denies use of tobacco or alcohol. PHYSICAL EXAMINATION: GENERAL: male patient who is not in apparent distress. VITAL SIGNS: Blood pressure is 152/112 mmHg, heart rate is 96 beats per minute, respiration rate 18 per minute, temperature 36.9 degrees. CONSTITUTIONAL: He appears comfortable, lying in bed, not in apparent distress. HEENT: Anicteric sclerae. Intact extraocular motions. NECK: Supple, without JVD, carotid bruits or lymphadenopathy. I do not appreciate thyromegaly. CHEST: Clear to auscultation with good air entry bilaterally. No wheeze or crackles, with resonant percussion noted over both lung green. HEART: Regular rate and rhythm without murmurs or gallops. ABDOMEN: Soft and lax without tenderness or organomegaly. The patient has active bowel sounds. EXTREMITIES: Lower extremity examination is negative for ankle edema, but noted for diminished sensation to light touch. Both great toes are wrapped in surgical dressing. Sensation to light touch is moderately diminished. Pedal pulses are faint. NEUROLOGIC: Awake, alert and oriented to time, place and person. The remainder of his examination is nonfocal other than for sensory deficits. PSYCH: Interactive, flat mood and affect. Avoids eye contact, does not seem engaged in the discussion, apparently not interested in taking the discussion further, but normal thought process. LABORATORY DATA: Blood glucose values have ranged between 240 and 335 mg/dL. Other laboratory data, sodium 134, potassium 3.8, chloride 96, CO2 of 29, anion gap 9, BUN 13, creatinine 1.3. AST 19, lipase 140. Total bilirubin 0.3, calcium 8.6, magnesium 1.9, alkaline phosphatase 237, ALT 21, total protein 8.6, albumin 3.0, GFR 63. Lactic acid 2.6. CRP 183.4. White blood count 9.6, hemoglobin 12.1, hematocrit 36.7, platelets 202. Hemoglobin A1c on 10/26/2018 was 9.1. [facility] [address] [place] [address] CONSULTATION Name: CARLOS STAHL Room #: 449-I ADM IN Luciano#: [id number] Admission: 01/21/19 Attend Phys: Jeremy Nugent MD Discharge: Date of : 83 Report #: [id number] ASSESSMENT AND PLAN: 1. Type 1 diabetes mellitus, uncontrolled. The patient has longstanding uncontrolled type 1 diabetes mellitus that has been complicated by the issues of peripheral neuropathy, recurrent cellulitis, cataracts and chronic kidney disease. It appears that the patient's methodology of injecting a rapid-acting insulin for meals is rather inconsistent, but he was not engaged in our discussion and somewhat resisted the notion of having to change his method. He argued back when I advised that meal coverage should be secured in a type 1 diabetic. In the immediate setting, I will adjust the patient's regimen to where he is taking Lantus insulin 25 units at bedtime in addition to 7 units of Humalog scheduled with every full meal and a backup coverage with Humalog supplemental scale low intensity with a plan to monitor his blood glucose values a.c. and at bedtime. His insulin therapy will be adjusted according to these blood glucose values. Also, I will obtain a current hemoglobin A1c to better assess his state of control. 2. Diabetic neuropathy. He is to continue with gabapentin therapy at 600 mg t.i.d. 3. Hypertension. The patient was placed on Norvasc 5 mg daily and his blood pressure will be monitored going forward. 4. Cellulitis. The patient is currently on antibiotic therapy with vancomycin and Zosyn. I stressed the importance of routine foot and eye care. I certainly appreciate this consultation by Dr. Nugent. <ELECTRONICALLY SIGNED> By: Ramón Raza MD 01/23/19 0927 [id number] Ramón Raza MD /nt
--- NOTE | 2019-01-23 12:03 | HC ---
[facility] [place] [address] CONSULTATION Name: CARLOS STAHL Room #: 449-I ADM IN .R.#: [id number] Admission: 01/21/19 Attend Phys: Jeremy Nugent MD Discharge: Date of : 83 Report #: [id number] THIS REPORT FOR: //name// CC: JONNATHAN physician/PCP Jeremy Nugent DATE OF SERVICE: 01/22/2019 INFECTIOUS DISEASE CONSULTATION REASON FOR CONSULTATION: I was asked to evaluate concerning diabetic foot infection. HISTORY OF PRESENT ILLNESS: The patient is a 33-year-old diabetic with peripheral neuropathy. He was here in October of 2018 with bilateral foot wounds, right greatest with a possible early osteomyelitis. Plan was for antibiotic therapy intravenously. The patient refused and was discharged on Zyvox. I have not seen him in followup since. Comes back now with bilateral great toe ulcerations over both the plantar aspect of his toes as well as the dorsum with loss of both first toe nails. He has known peripheral neuropathy. He has no insurance and started with a new company. Discussed with him whether he had been to Podiatry to work on offloading his toes. He denied. He also reports being noncompliant with his antihypertensive therapy. No fever, chills or sweats. Moderate amount of pain as noted in the left great toe. He knows he is on his feet throughout the day for his job. ALLERGIES: DYE. MEDICATIONS: Clonazepam, oxycodone, insulin, paroxetine, Neurontin. PAST MEDICAL HISTORY: Diabetes, atrial fibrillation, status post ablation in 2009, MRSA infection of his foot, kidney stones, chronic kidney disease, bilateral cataract due to his diabetes, diabetic foot ulcers of his great toes, anxiety and peripheral neuropathy. FAMILY HISTORY: Noncontributory. SOCIAL HISTORY: Nonsmoker. No current alcohol use. REVIEW OF SYSTEMS: Ten-point review was negative other than what is described above. PHYSICAL EXAMINATION: VITAL SIGNS: He is afebrile and hemodynamically stable. GENERAL: He is alert and cooperative. HEENT: Unremarkable. [address] [address] CONSULTATION Name: CARLOS STAHL Sanjay Room #: 449-I ADM IN M.R.#: [id number] Admission: 01/21/19 Attend Phys: Jeremy Nugent MD Discharge: Date of : 83 Report #: [id number] NECK: Supple. LUNGS: Clear. HEART: Regular, without murmur. ABDOMEN: Soft, nontender, no hepatosplenomegaly or mass. EXTREMITIES: Pulses in the extremities were palpable throughout. He had bilateral great toe wounds. Both toenails were absent. There is no purulent drainage. There was surrounding erythema involving both toes. He had a full thickness wounds to the plantar aspect of his first toes over the pad of the distal phalanx. On the left, there was some fatty fibrinous tissue able to be viewed. He had decreased sensation to his toes. LABORATORY STUDIES: Reviewed. X-rays reviewed. Cultures of blood are pending. IMPRESSION: 1. Bilateral neuropathic ulcers to both great toes. I am concerned with the extent and duration of these wounds that he does have underlying osteomyelitis developing. His inflammatory markers remain very high. 2. Peripheral neuropathy. 3. 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 4. Atrial fibrillation, status post ablation. 5. Chronic kidney disease. 6. Hypertension, noncompliant with his medications. 7. Chronic pain syndrome with narcotic dependence. 8. Anxiety. RECOMMENDATIONS: We will continue broad antibiotic coverage. Obtain cultures of the wounds. Would pursue MRI scan in addition to surgical evaluation with Podiatry. <ELECTRONICALLY SIGNED> By: Ishmael Chaves MD 01/23/19 1203 [id number] Ishmael Chaves MD /nt
--- NOTE | 2019-01-23 12:05 | NUR ---
Case opened to follow for dc planning. Pt known to cm from previous admissions. Pt is a&ox4 and indicates that he rodriguez not have insurance and is concerned he may lose his job due too many sick days. 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 He is indep with gait and adl's and has support at home. He is anxious about possible amputation of his toes. [facility] and [employer] options discussed. [id number] to provide a jeferson application to pt. CM role reintroduced. Pt denied any additional needs or concerns at this time. Will follow along.
--- NOTE | 2019-01-23 12:25 | NUR ---
Nutrition: Assessed d/t admitting reason of diabetic ulcers, bilateral great toes. Notes state secondary infection and likely osteomyelitis. Per EMR, awaiting MRI to assess bones and podiatry for debridement. Pt is a diabetic, insulin-dependent. FELICIA ferrari w/ this pt from Oct 2018 admit when nutrition ed/guidance was given. Pt has been NAx3 attempts today d/t need to be seen by other staff, wound care, etc. From past encounter, pt understood the value in protein and consumed a high protein diet already eating lots of high quality sources. Ate 75-100% of all 3 meals yesterday, none yet recorded today, but pt typically has an excellent appetite/intake. Will keep as low nutrition risk for now and continue to monitor po intake trends for any changes.
--- NOTE | 2019-01-23 16:13 | NUR ---
Assumed pt care at 7am.Pt in bed with several needs and calls out frequently for one thing or other.Pt was rude and cursing with every sentence he uttered. Rn tried as much as possibly to encourage pt to be appropriate and humble. Pt was angry and hungry early this shift and not happy being npo for surgery. Dr Ocampo here and okay pt to eat today but npo after mn.Surgery was scheduled for tomorrow.Dr Blankenship here,order noted.Both po and iv pain med given today with relief.Pt fell asleep after lunch.Will have mri this evening. Will continue to monitor.
[2019-01-23 17:09] VITALS: BP 159/101
[2019-01-23 19:47] VITALS: BP 155/101
--- NOTE | 2019-01-24 05:23 | NUR ---
Pt. can be uncooperative with cares at times and non-compliant. Blood pressure has been elevated, but he refused his am bp meds and complains that the hydralazine gives him these hot flashes. He also trys to dictate how much insulin to give him. Pt. also uses profanity language. He has been given po pain meds for c/o bilateral foot pain (see emar) with some relief noted. Pt. educated on the importance of being npo after midnight. Mother at the bedside all shift.
--- NOTE | 2019-01-24 06:25 | NUR ---
Pt. requesting pain medication and he is npo. Spoke to provider with new order for one time dose of morphine. Informed pt. of new order and he refused it.
[2019-01-24 07:41] VITALS: BP 113/65
[2019-01-24 08:00] VITALS: BP 154/114
[2019-01-24 14:54] VITALS: BP 173/114
--- NOTE | 2019-01-24 15:55 | NUR ---
Assumed care for PT @ 0700. Pt and mom in room resting. Pt was A&O x4. BS was 224 but no insulin given due to NPO. Assessment completed, BP elevated 154/114. Pt refused morphine earlier in the morning stating it would upset his stomach since he had not eaten. Pt was more calm and cooperative, stated he did not want to be NPO all day if MRI/procedure to amputate was not going to happen. MRI called and patient was cooperative. Dr Nugent here and stated MRI returned on left greater toe with ostemyolitis but wanted to be sure the right greater toe was also being looked at. Dr Nugent stated that Pt should not leave for surgery unless both toes were noted to be amputated. Dr Nugent stated he would put in order for bolus since Pt is NPO and was thirsty. Administered oxycodone (per PT request) and amlodipine with small sip of water. Put call into Dr. Ocampo to confirm surgery would happen today as Pre-op had called to get report on PT. Dr Ocampo called and stated Pt will be scheduled for surgery on 01/26/19, since the OR has no other time available. Pt is scheduled for 8:30 am on Sunday. Contacted Dr. Nugent to change oxycodone PRN from Q6 to Q4 per Pt request. Dr Nugent agreed to change as long as sedation is not noted after administration. Dr Nugent states he will be here this weekend so he will also look in on Pt for the sedation and change back to Q6 as applicable. I also relayed the message from Dr. Ocampo regarding postponement of surgery and reason for Sunday schedule due to OR not available until 08. Pt refused gentamycin and gabapentin, states he wants to take gabapentin with oxycodone Q4 PRN. Dr Ocampo here and spoke with Pt regarding revised schedule for amputation, states Pt requests a shower/bath.
--- NOTE | 2019-01-24 16:10 | NUR ---
IT IS ANTICIPATED THAT PT WILL BE HERE OVER THE WEEKEND. PT IS TO HAVE SURGERY FOR TOW AMP SUNDAY. CM TO FOLLOW INDICATED WITH DC PLANNING.
--- NOTE | 2019-01-24 18:06 | NUR ---
Per Dr Ocampo SCD is not indicated; Pt is independent and walks frequently, also has wound on both greater toes. Pt has taken a shower and is back in bed. Pt states he would like the wound care to be administered at bedtime since he is still walking around and doesn't want to have it.
[2019-01-24 22:35] VITALS: BP 185/129
[2019-01-25 00:15] VITALS: BP 171/111
[2019-01-25 02:13] LABS: AMP/METHAMP Negative (Negative); BARBITURATES Negative (Negative); BENZODIAZEPINES Negative (Negative); COCAINE Negative (Negative); METHADONE Negative (Negative); OPIATES Negative (Negative); PCP Negative (Negative)
[2019-01-25 02:15] VITALS: BP 159/110
--- NOTE | 2019-01-25 02:53 | NUR ---
Assumed care of pt @1915. pt a&ox4. independent in the room. pt stated that he wants his pain med changed to q4 instead of q6. Day nurse had stated that she spoke with doctor and doctor said, he will changed the order to q4. this nurse checked orders but it was ordered as q6. called COMPANY SECRETARY and she wasn't comfortable changing the order since it is a narcotic. explained to pt and it was agreed that, this issue will be rectify in the morning. about 2hrs later, pt called out for pain med, nurse was in the med room getting the meds when pt friend came to the nurses desk and stated that 'the pt is requesting for pain med' 15mg of oxycodone was administered to pt per emar. pt BP was increased and was treated with hydralazine. an hour later there was no change to the BP and pt was complaining of having an anxiety attack, being hostile to the nurse and saying, nurse should just go and call the doctor and get something for him. this nurse asked pt if he could ask him a question and please not to get offended by it. this nurse asked pt "did u take anything from your friends" pt became more agitated and screaming at the nurse. pt stated that this nurse has accused his friends of giving him drugs and that he wanted to talk with the supervisor stock [employer]. pt was hostile, screaming at the top of his voice and cursing out on staff. security was called. nurse supervisor [employer] and COMPANY SECRETARY were called as well 1x dose of iv ativan was ordered and administered. about and hr and a half later, pt called for pain med, and the covering nurse answered and stated that pain med wasn't due yet and that he got it around @2315. pt stated that the pain was never given to him and wanted to talk to the conference planning manager. Wound care was done. pt was making inapprop comments to nurse when nurse was doing care.
--- NOTE | 2019-01-25 06:00 | NUR ---
Took over pt. care around 0100. He has been making inapproriate comments at times. He did not believe that he had gotten his po pain meds earlier at 2315. Calling the previous nurse a liar and demanded to speak to the general manager road production. bonding supervisor (Sindhu) was called and notified of pt. request. He also accused this nurse this morning being a liar about his pain meds. He said I was the one that said he could have his po pain meds every [address] Informed pt. that I did speak to the Dr. while you were npo and received order for iv one time dose of morphine, but you refused it. I never received an order to increase pain meds to every 4 hours. Pt. had gotten very beligerent and verbally threatened staff around 0030. He voiced that if his panic atttack was not taken care of he would take care of us. Security and greenhouse specialist were called.
[2019-01-25 07:58] VITALS: BP 166/99
--- NOTE | 2019-01-25 12:07 | NUR ---
Assumed Pt care @ 0700 am. Assessment completed, VSS. Pt is calm and cooperative but stated he had a bad night due to having urinalysis done because RN thought he might be have taken illicit drugs. Overnight RN stated security was called to his room for erratic behavior and tachycardia and reason for why UA was ordered.
[2019-01-25 14:50] VITALS: BP 153/115
--- NOTE | 2019-01-25 16:06 | NUR ---
Pt became irritated when told he was on a CARB CONTROL diet but wanted to order TWO cheese pizzas and a diet Pepsi. Pt stated he is agitated and having a panic attack and wanted Ativan. Brought Pt Clonazepam PO but Pt refused and wanted to have Dr called to order Ativan IV as a scheduled med. @[address] Nugent and discussed PT stated he was agitated and having a panic attack because he could not have the food he wanted. Also advised that Pt may be disappointed that mom is not coming up to stay overnight as Pt had planned/hoped and he may actually be nervous and anxious but it could also be a form of manipulation. Dr. Nugent stated he would put in the order for Ativan IV shortly.
[2019-01-25 21:45] VITALS: BP 148/98
--- NOTE | 2019-01-26 06:00 | NUR ---
Pt. continues to be very anxious and displays impatience with the staff frequently. He will also verbalize inappropriate comments at times. He was more cooperative with cares than in the past couple of nights. No cursing or aggressive behavior displayed. He was given po pain meds for c/o lower extremity pain (see emar) with some relief noted. Pt. refused his insulin at HS due to being npo after midnoc. During the night he wanted his blood sugar taken and it was 374. He was requesting 7 units of lispro. I called and spoke to Landy CLIFTON with new orders to give 7 units of lispro sub q.
[2019-01-26 08:00] VITALS: BP 151/102
[2019-01-26 12:00] VITALS: BP 165/92
--- NOTE | 2019-01-26 16:01 | NUR ---
Assumed pt care this am, refsued to have his blood sugars checked and signing the consent for the amputation until he spoke to the doctor. Pt informed me that he had a few gulps of water at 4 am since he was so thirsty. Informed pre op of the situation and updates given by the dry drug worker as well, pt is non compliant with the regiment to controll his blood sugars and dictated how much, if and when he will take insulin. Pt refused having his post op vitals taken and wanted to be left alone to sleep. A left hand IV was placed in the OR and the olf IV on the AC is removed. On clear liquid diet.
[2019-01-26 20:40] VITALS: BP 139/93
--- NOTE | 2019-01-27 01:58 | NUR ---
ASSUMED CARE OF PT AT 1900HRS. PT AOX4 AND LETS NEEDS BE KNOWN. FALL PRECAUTION IN PLACE. PT IS POST OP DAY 0 AND IS ON CLEAR LIQUID DIET. PT COMPLAINED OF NAUSEA & PAIN, AND WAS TREATED WITH PRN PAIN MEDS. ABX TREATMENT CONTINUED. SURGICAL DRESSING IS C/D/I. PT WAS ABLE TO SLEEP PART OF THE SHIFT. VITAL SIGN UNCHANGED. PT REFUSED INSULIN AND BP MEDS THIS SHIFT. WILL CONTINUE TO MONITOR.
[2019-01-27 08:20] VITALS: BP 127/75
[2019-01-27 08:25] VITALS: BP 127/75
[2019-01-27 08:46] VITALS: BP 92/56
[2019-01-27 18:30] VITALS: BP 161/77
--- NOTE | 2019-01-27 18:49 | NUR ---
Assumed care @ 0700. Pt refused assessment until PM, VSS, A&O x4. Per Dr. Nugent order to have Pt OOB and sitting in chair but Pt refused. Pt did not have an appetite and did not tolerate water or soda well so Pt stated he did not want to eat. Pt refused insulin at lunch time but did not recall that he refused so had to bring a witness into the room for insulin admin in the PM. Vancomycin trough was good so was able to admin this PM. Called Dr. Nugent as Pt stated he was having a panic attack and ordered Ativan IVP due to N/V. Pt was very appreciative for the quick action. Advised Pt he has shoes/slippers to use for his walking and will give to night RN to put in room. Pt's BS went from 426 to 403 as Pt was given 19 units. Pt stated he wants insulin now and so will not refuse insulin in the future.
[2019-01-27 20:56] VITALS: BP 162/99
[2019-01-28] VITALS (35 sets, daily range): BP systolic 134–173; BP diastolic 73–103
--- NOTE | 2019-01-28 03:57 | NUR ---
ASSUMED CARE OF PT AT 1900HRS. PT IS AOX4 AND LETS NEEDS BE KNOWN. PT IS UP AD [place]. RIGHT FOOT DRESSING WAS LOOSE AND HAD TO BE CHANGED. PT COMPLAIINED OF NAUSEA AND HAD DARK PROJECTILE EMISIS X2. PRN NAUSEA MEDS USED BUT NOT VERY EFFECTIVE. PT WANTED TO SHOWER AND WAS ADVISED AGAINST IT. PT INSISTED THAT SHOWER WOULD MAKE HIM FEEL BETTER. PT SHOWERED ENSURING SURGICAL DRESSING REMAIN DRY. BP AND HEART RATE REMAIN EVEVATED. PT WAS UNABLE TO REST THIS SHIFT. WILL CONTINUE TO MONITOR.
--- NOTE | 2019-01-28 05:05 | NUR ---
P[employer]ER [employer] P[employer]ER NOTIFIED OF ELEVATED HR. NO NEW ORDERS RECEIVED. WILL CONTINUE TO MONITOR.
[2019-01-28 06:06] LABS: ABSOLUTE NEUTROPHILS 11.4 thou/uL (1.4-8.2); BASOPHILS 0.1 % (0.0-2.0); EOSINOPHILS 0.1 % (0.0-3.0); HEMATOCRIT 37.4 % (42.0-52.0); LYMPHOCYTES 4.6 % (24.0-44.0); MCH 29.6 pg (26.0-34.0); MCHC 32.1 g/dL (28.0-37.0); MCV 92.2 fL (80.0-100.0); MONOCYTES 8.8 % (1.0-8.0); PLATELET COUNT 347 thou/uL (150-400); POLYS 86.4 % (36.0-66.0); RBC 4.06 mil/uL (4.50-6.00); RDW 14.6 % (10.5-14.5); WBC 13.2 thou/uL (4.0-11.0)
[2019-01-28 06:13] LABS: CALCIUM 9.9 mg/dL (8.5-10.1); CREATININE 2.1 mg/dL (0.7-1.3); MAGNESIUM 2.1 mg/dL (1.8-2.4); POTASSIUM 4.4 mmol/L (3.5-5.1)
--- NOTE | 2019-01-28 08:09 | HC ---
[facility] [place] [address] CONSULTATION Name: CARLOS STAHL Room #: 449-I ADM IN ..#: [id number] Admission: 01/21/19 Attend Phys: Jeremy Nugent MD Discharge: Date of : 83 Report #: [id number] THIS REPORT FOR: //name// CC: JONNATHAN physician/PCP Jeremy Nugent DATE OF SERVICE: 01/22/2019 WOUND CARE CONSULTATION HISTORY OF PRESENT ILLNESS: The patient is a 33-year-old male patient with a history of diabetes mellitus and evidence of peripheral neuropathy, who was admitted to the hospital with bilateral ulcerations to his great toes, chills, achiness and some drainage. I have been asked to see him with regard to wound care. He states that he has had ulcerations on the plantar aspects of both of his great toes for approximately 6 months. 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 He does not have diabetic shoes. PAST MEDICAL HISTORY: Positive for type 1 diabetes mellitus, previous atrial fibrillation, status post ablation in 2009, history of MRSA foot infection, kidney stones, chronic kidney disease stage III, bilateral cataracts, anxiety and peripheral neuropathy. FAMILY HISTORY: Positive for diabetes in an aunt. SOCIAL HISTORY: Positive for alcohol on special occasions. He has never smoked. MEDICATIONS: Include linezolid, clonazepam, oxycodone, Levemir, Humalog, Paxil, and Neurontin. ALLERGIES: DYE. REVIEW OF SYSTEMS: CONSTITUTIONAL: The patient does complain of fever and chills. ENT: The patient denies earache, nasal drainage, sore throat. EYES: The patient denies visual changes, redness, or drainage. CARDIOVASCULAR: The patient denies chest pain or palpitations or diaphoresis. PULMONARY: The patient denies cough or shortness of breath. GASTROINTESTINAL: The patient does complain of mild nausea and abdominal pain. GENITOURINARY: Denies frequency. Denies dysuria. ORTHOPEDIC: The patient notes ulcerations on both feet. Other systems in a 14-point review of systems are negative. PHYSICAL EXAMINATION: VITAL SIGNS: At this time include temperature 97.7, pulse 118, respiratory rate [address] [address] CONSULTATION Name: CARLOS STAHL Room #: 449-I ADM IN [facility]#: [id number] Admission: 01/21/19 Attend Phys: Jeremy Nugent MD Discharge: Date of : 83 Report #: [id number] of 20, blood pressure 162/105. GENERAL: This is a somewhat well-developed, well-nourished male patient who appears to be in no distress. HEENT: Head normocephalic. Nose and throat clear. NECK: Supple. LUNGS: Clear. ABDOMEN: Soft. Bowel sounds present. EXTREMITIES: Lower extremities demonstrate easily palpable distal pulses with normal hair growth pattern. He has ulcerations on the plantar aspects of both great toes. No exposed bony structures are noted. There is significant redness and swelling, more so on the left than on the right. NEUROLOGIC: The patient is alert and oriented and appropriate. Moving all 4 extremities spontaneously. He does have diminished light touch sensation to both feet. LABORATORY STUDIES: Sodium 136, potassium 3.7, chloride 98, CO2 of 30, BUN 13, creatinine 1.2, glucose 268. White blood cell count 9.3 with a hemoglobin of 13.0, hematocrit of 38.2. IMAGING: X-rays demonstrate marginal erosions involving the first distal phalanges bilaterally. CLINICAL IMPRESSION: 1. Neuropathic diabetic ulcers, bilateral great toes. 2. Probable osteomyelitis, distal phalanges of both toes. 3. Diabetes type 1 with hyperglycemia. RECOMMENDATIONS: At this point in time, we will recommend topical gentamicin and Xeroform gauze, empiric antibiotic therapy, pending C and S. We will ask Podiatry or Orthopedics to evaluate for possible bony debridement. We will check MRIs to better understand the extent of the underlying osteomyelitis. Aggressive nutritional support would be helpful for maximizing wound healing and maintaining glycemic control. I reviewed with him the importance of daily foot care as well as the need for diabetic offloading shoes. I appreciate being asked to see him in consultation. <ELECTRONICALLY SIGNED> By: Ray Choudhury MD 01/28/19 0809 [id number] Ray Choudhury MD /nt
[2019-01-28 10:00] LABS: ABSOLUTE NEUTROPHILS 13.1 thou/uL (1.4-8.2); BASOPHILS 0.3 % (0.0-2.0); HEMOGLOBIN 12.7 gm/dL (14.0-18.0); MCH 29.5 pg (26.0-34.0); MCHC 31.6 g/dL (28.0-37.0); MCV 93.3 fL (80.0-100.0); MONOCYTES 5.2 % (1.0-8.0); PLATELET COUNT 398 thou/uL (150-400); POLYS 90.5 % (36.0-66.0); RBC 4.29 mil/uL (4.50-6.00); RDW 15.1 % (10.5-14.5); WBC 14.5 thou/uL (4.0-11.0)
--- NOTE | 2019-01-28 10:10 | NUR ---
FOLLOWING REGARDING NEEDS UPON DC PT IS UNINSURED AND SOMEWHAT NON-COMPLIANT. STILL ON TWO IV ABX WITH NEED OP WOUND CARE. NEEDED MEDS AND DM SUPPLIES VOUCHERED UPON LAST DISHCARGE. CARE TEAM INDICATING THAT PT IS TO BE TRANSFERED TO EITHER 3W OR ICU FOR DKA ISSUES. CM TO FOLLOW INDICATED WITH DC PLANNING.
[2019-01-28 10:12] LABS: ALBUMIN 2.9 g/dL (3.4-5.0); CALCIUM 10.4 mg/dL (8.5-10.1); CREATININE 2.3 mg/dL (0.7-1.3); PHOSPHORUS 4.8 mg/dL (2.5-4.9); POTASSIUM 4.2 mmol/L (3.5-5.1); TOTAL BILIRUBIN 0.5 mg/dL (<0.1-1.0); TOTAL PROTEIN 8.3 g/dL (6.4-8.2)
[2019-01-28 12:56] LABS: URINE BILIRUBIN NEGATIVE (Negative); URINE BLOOD TRACE (Negative); URINE CLARITY CLEAR; URINE COLOR YELLOW; URINE GLUCOSE-RANDOM* 3+ (Negative); URINE KETONES 3+ (Negative); URINE LEUKOCYTES-REFLEX NEGATIVE (Negative); URINE NITRITE-REFLEX NEGATIVE (Negative); URINE PROTEIN (DIPSTICK) TRACE (Negative); URINE UROBILINOGEN 0.2 E.U./dl (0.2-1.0)
--- NOTE | 2019-01-28 13:28 | NUR ---
33 yo male admitted from 4W with DKA at 1230.
--- NOTE | 2019-01-28 17:06 | PATH ---
[facility] [address] [place] [address] PATHOLOGY RPT PROCEDURE Name: NILE STAHL Room #: 242-P ADM IN M.R.#: [id number] Admission: 01/21/19 Date of : 83 Discharge: Report #: [id number] Path Case #: [id number] [facility] Accession Number: [id number] . 01 Material submitted: . PART A: toe - RIGHT GREAT TOE. Modifiers: right, great PART B: toe - LEFT GREAT TOE. Modifiers: left, great . 01 Clinical history: . Osteomyelitis bilateral great toes . 02 Diagnosis: A. Toe, right great toe, amputation: - Acute and chronic osteomyelitis involving underlying bone. - Bone margin viable without acute inflammation. - Overlying squamous epithelium showing acute inflammation and pseudoepitheliomatous changes. . B. Toe, left great toe, amputation: - Acute and chronic osteomyelitis involving underlying bone. - Bone margin viable without acute inflammation. - Overlying squamous epithelium showing acute inflammation and pseudoepitheliomatous changes. (IUV:pit; 01/28/2019) QTP 01/28/2019 1432 Local . 02 Electronically signed: . Gissell Polo MD, Pathologist NPI- [id number] . 01 Gross description: . A. The specimen is received in formalin, labeled "Nile Stahl, right great toe" and consists of a distal disarticulated segment of toe measuring 2.8 x 2.7 x 1.6 cm. The nail is absent. The dorsal aspect has indurated crusted turner-brown skin while the remainder of the toe is absent skin. The proximal bone margin is a smooth articular surface. Sectioning reveals yellow-turner bone cut surfaces. A claim service representative section is submitted in A1 following decalcification. Also received are additional segments of pink-turner skin measuring 2.8 x 2.3 x 0.6 cm in aggregate. A claim service representative portion is submitted in A2. . B. The specimen is received in formalin, labeled "Nile Stahl, left great toe" and consists of the distal disarticulated segment of toe measuring 2.8 x 3.1 x 1.8 cm. The dorsal aspect has an irregular segment of turner brown skin while the rest of the toe is absent skin. No nail is present. The proximal bone margin is a smooth articular surface. Sectioning reveals yellow-turner bone cut surfaces. A claim [place] [address] PATHOLOGY RPT PROCEDURE Name: NILE STAHL R Room #: 242-P ADM IN M.R.#: [id number] Admission: 01/21/19 Date of : 83 Discharge: Report #: [id number] Path Case #: [id number] submitted in B1 following decalcification. Also received are 3 segments of skin and soft tissue measuring 2.7 x 1.7 x 0.4 cm. A claim service representative portion is submitted in B2. (SDY; 01/27/2019) SYU/SYU 01/27/2019 1413 Local . 02 Pathologist provided ICD-10: M86.171, L98.9, M86.172, M86.672, M86.671 . 02 CPT . 427828, 621250, 947218, 113105 Specimen Comment: A courtesy copy of this report has been sent to [phone] Specimen Comment: Report sent to Performed at: [address] [facility] [address], [place], [place] [id number] MD Junior Jara MD Phone: [phone] Performed at: [address] [facility] [address] [id number] MD Gissell Polo MD Phone: [phone]
[2019-01-28 17:10] LABS: HEMOGLOBIN 11.7 gm/dL (14.0-18.0)
[2019-01-28 17:22] LABS: ALBUMIN 2.6 g/dL (3.4-5.0); CALCIUM 10.1 mg/dL (8.5-10.1); CREATININE 1.8 mg/dL (0.7-1.3); MAGNESIUM 2.1 mg/dL (1.8-2.4); PHOSPHORUS 2.1 mg/dL (2.5-4.9); POTASSIUM 3.6 mmol/L (3.5-5.1)
--- NOTE | 2019-01-28 18:50 | NUR ---
PATIENT REMAINS ON INSULIN DRIP AND DECREASED TO KEEP BLOOD GLUCOSE 150 TO 200. IV FLUIDS ADJUSTED ACCORDING TO LAB. ANION GAP DECREASED. PAIN MEDS CALL IN TO CHANGE TO IV PATIENT IS NPO. MONITOR REMAINS ST. HYDRALAZINE GIVEN FOR ELEVATED BP. ANTI EMETICS GIVEN FOR NAUSEA AND VOMITING, STOOLS ARE NOW GREENISH IN COLOR. PROTONIX DRIP INFUSING. PATIENT UPDATED TO POC AND REASSURANCE GIVEN.
--- NOTE | 2019-01-28 20:30 | NUR ---
Received awake on bed. Due medications given as prescribed. A+Ox4. Vital signs stable, with elevated BP- PRN hydralazine given as prescribed, schedueled BP meds given as well. On room air. Pt very nauseated, ice chips given and PRN anti emetic given as prescribed. Assisted in ADLs. Able to sit out on chair. With IVF at 100cc/hr, infusing well. Maintained on isolation due to MRSA. With dressing to bilateral toes, C/D/I, pt refused to have it changed or touched. Blood sugar monitoring- taken and recorded; sliding scale insulin given as prescribed, pt agreed to have prescribed dose of insulin. Not tolerating PO. Dr Warren informed that pt requesting for more anti-emetics since pt's next dose of Zofran and compazine is not due until 11am- Reglan IV prescribed- given to patient. No complaints of pain. Able to have bowel movement today. Pt seen by Dr Warren- informed me that pt is having DKA- to start on DKA protocol and insulin drip; informed Dr Warren that I have verified with charge nurse and [facility] solid waste disposal manager that we cannot do drips here in the [facility], pt needs to be transferred- Dr Warren informed and orders made; Hector Lazaro informed re: transfer- pt to go to ICU rm 242. As per Dr Warren, to start Iv fluid bolus while waiting for room to be available; with order for one time dose of humulin R- informed Dr Warren that I just gave sliding scale insulin of 19units, may omit order. Critical lab levels relayed to Dr Warren while she was still on the floor, orders made. Vancomycin critical level relayed to Dr Chaves, IV antibiotics discontinued- informed him re: transfer as well. Pt's mother informed re: transfer to rm 242. urine sample sent prior to his transfer- ICU staff informed. With orders to refer patient to Endocrinology- Dr Blankenship was here in the cam[facility], relayed to him what happened and he said he already signed off from the patient- Dr Warren informed and said she will talk to Dr Blankenship, for now she can manage pt's DKA and just to facilitate pt's transfer to ICU. Pt taken down to ICU- report given to Staff, transferred to bed safely, personal belongings taken with him.
[2019-01-28 22:15] LABS: HEMATOCRIT 35.7 % (42.0-52.0); HEMOGLOBIN 11.6 gm/dL (14.0-18.0)
[2019-01-28 22:38] LABS: ALBUMIN 2.6 g/dL (3.4-5.0); CALCIUM 9.8 mg/dL (8.5-10.1); CREATININE 1.7 mg/dL (0.7-1.3); PHOSPHORUS 1.8 mg/dL (2.5-4.9); POTASSIUM 3.5 mmol/L (3.5-5.1)
[2019-01-29] VITALS (17 sets, daily range): BP systolic 120–159; BP diastolic 67–104
[2019-01-29 02:55] LABS: ALBUMIN 2.4 g/dL (3.4-5.0); CALCIUM 9.6 mg/dL (8.5-10.1); CREATININE 1.6 mg/dL (0.7-1.3); MAGNESIUM 1.8 mg/dL (1.8-2.4); PHOSPHORUS 2.3 mg/dL (2.5-4.9); POTASSIUM 3.4 mmol/L (3.5-5.1)
[2019-01-29 05:46] LABS: HEMATOCRIT 33.1 % (42.0-52.0); HEMOGLOBIN 10.9 gm/dL (14.0-18.0)
--- NOTE | 2019-01-29 05:47 | NUR ---
THIS AM PT COMPLAINS OF BEING NPO STATUS. HE WAS INFORMED BY RN THAT NPO IS DUE TO THE EGD THEY HAVE PLANNNED FOR HIM THIS AM. PT VERBALIZES "I DO NOT WANT THAT. I AM GONNA REFUSE." SWABS WERE GIVEN TO PT BY RN AND PT VERBALIZED THAT THEY HELP, BUT THAT HE WANTS WATER.
[2019-01-29 05:59] LABS: ALBUMIN 2.4 g/dL (3.4-5.0); CALCIUM 9.3 mg/dL (8.5-10.1); CREATININE 1.4 mg/dL (0.7-1.3); POTASSIUM 3.7 mmol/L (3.5-5.1)
--- NOTE | 2019-01-29 12:58 | NUR ---
ASSUMED CARE AT 0700, PATIENT A&O X 4, PLEASANT WITH CARES, HOWEVER, HE REFUSES A LOT OF CARES. PATIEN HAD COFFEE GROUND EMESIS YESTERDAT AND WAS SET FOR AN EGD THIS AM. PATIENT IS REFUSING TO HAVE THAT DONE, STATING "I DON'T NEED THAT RIGHT NOW, I CAN DO IT OUTPATIENT"PATIENT WAS MADE AWARE OR THE RISKS OF NOT HAVING THE EGD BY THE GI PHYSICIAN AND STILL CHOOSE NOT TO DO IT. PATIENT IS STILL NAUSEOUS AT TIMES. PATIENT IS NOW OFF OF THE INSULIN DRIP WITH CONTROLLED GLUCOSE NOW. PATIENT CAN BE UNFRIENDLY IF YOU ARE DOING SOMETHING THAT HE DOESN'T LIKE IT. DRESSING TO BILAT GREAT TOES CHANGED ORDERED. VSS. NO FURTHER CONCERNS AT THIS TIME. WILL CONTINUE TO MONITOR AND CARE PER PLAN OF CARE.
[2019-01-29 14:16] LABS: HEMATOCRIT 32.7 % (42.0-52.0); HEMOGLOBIN 10.9 gm/dL (14.0-18.0)
[2019-01-29 17:22] LABS: ALBUMIN 2.3 g/dL (3.4-5.0); CALCIUM 9.1 mg/dL (8.5-10.1); CREATININE 1.1 mg/dL (0.7-1.3); MAGNESIUM 1.6 mg/dL (1.8-2.4); PHOSPHORUS 2.6 mg/dL (2.5-4.9); POTASSIUM 3.2 mmol/L (3.5-5.1)
--- NOTE | 2019-01-29 23:33 | NUR ---
Pt stated he felt shakey and thought his blood sugar was too high. Blood sugar checked per fingerstick and was 114. Pt given 4 oz apple juice per his request. Will continue to monitor as needed.
[2019-01-30 05:00] LABS: ABSOLUTE NEUTROPHILS 7.7 thou/uL (1.4-8.2); BASOPHILS 0.6 % (0.0-2.0); EOSINOPHILS 1.5 % (0.0-3.0); HEMATOCRIT 38.2 % (42.0-52.0); HEMOGLOBIN 12.6 gm/dL (14.0-18.0); LYMPHOCYTES 13.7 % (24.0-44.0); MCH 29.5 pg (26.0-34.0); MCV 89.4 fL (80.0-100.0); MONOCYTES 11.1 % (1.0-8.0); POLYS 73.1 % (36.0-66.0); RBC 4.27 mil/uL (4.50-6.00); RDW 14.4 % (10.5-14.5); WBC 10.5 thou/uL (4.0-11.0)
[2019-01-30 05:23] LABS: PLATELET COUNT 275 thou/uL (150-400)
--- NOTE | 2019-01-30 05:31 | NUR ---
Pt has intermittently refused meds this shift. Has requested blood sugar check several times because he thought his sugar was high. Highest blood sugar was 140. No nausea or vomitting, intermittent c/o of GERD.
[2019-01-30 05:49] LABS: ALBUMIN 2.5 g/dL (3.4-5.0); CALCIUM 9.5 mg/dL (8.5-10.1); CREATININE 1.2 mg/dL (0.7-1.3); POTASSIUM 3.4 mmol/L (3.5-5.1); TOTAL BILIRUBIN 0.3 mg/dL (<0.1-1.0); TOTAL PROTEIN 6.6 g/dL (6.4-8.2)
[2019-01-30 08:00] VITALS: BP 164/112
[2019-01-30 09:00] VITALS: BP 153/107
[2019-01-30 11:00] VITALS: BP 149/95
--- NOTE | 2019-01-30 11:00 | NUR ---
PT SEAMS VERY MANIPULATIVE AND APPEARS TO HAVE EXPLOSIVE PERSONALITY. EMOTIONAL SUPPORT GIVEN. SPOKE WITH SWS REGARDING PT NEED FOR DRESSING CHANGES TO FEET. SHE STATES SHE IS NOT SURE IF HE CAN GET INTO AN OUTPATIENT PROGRAM. WILL FOLLOW UP. DR. BULLARD AWARE.
--- NOTE | 2019-01-30 11:20 | NUR ---
DR. DELGADO HERE UPDATE GIVEN. TOOK PT DRESSINGS OFF. REDRESSED WITH YUNG AND YAYA BECAUSE WOUND CARE NURSE IS COMING TO TEACH PT HOW TO DRESS HIMSELF.
[2019-01-30 12:05] VITALS: BP 148/88
--- NOTE | 2019-01-30 13:29 | NUR ---
WOUND CARE F/U; S/P SURDICAL INTERVENTION. THE INSCISIONS ARE WELL APPROXIMATED. SCANT SEROSANGUINOUS DRAINAGE. NO S/S OF INFECTION. RECOMMENDATION; D/C INSTRUCTIONS GIVEN RE; DSG CHANGES AND M/W/F DRESSING CHANGES IN THE INFUSION CLINIC TO BE COORDINATED BY CASE MANAGEMENT. DISCUSSED WITH STAFF
--- NOTE | 2019-01-30 13:43 | NUR ---
Nutrition: Pt seen per followup. Admit with diabetic ulcers, bilateral great toes/osteo. S/P amputations of both great toes on 01/26. Hx IDDM and noncompliance. BG 101-185#. Recent issue with hematemesis and planned for EGD however pt refused the test yesterday. PO intake highly variable. Reports eating a good breakfast yesterday but no lunch today. Just tx from ICU. C/O acid reflux. On protonix. Discussed dietary interventions. Voices no desire for additional dietary education on DM. Understands need for high protein diet and is agreeable to glucerna BID at present due to suboptimal intake. Reports no weight changes from 175#. Most recent weight of 156# suspected error. Continue as low nutrition risk.
[2019-01-30] MEDS ORDERED: PRINIVIL5 MG PO (13:48)
[2019-01-30] MEDS ORDERED: NORVASC10 MG PO (13:48)
[2019-01-30] MEDS ORDERED: CARAFATE 1 GM TA1 G1 PO (13:49)
[2019-01-30] MEDS ORDERED: LANTUS100 UNIT/M SUBQ (13:49)
[2019-01-30] MEDS ORDERED: HUMALOG100 UNIT/1 SUBQ (13:50)
[2019-01-30] MEDS ORDERED: PROTONIX40 M4 PO (13:51)
[2019-01-30 14:57] VITALS: BP 148/88
--- NOTE | 2019-01-30 15:05 | NUR ---
Pt dcing home today. He does not have insurance for hh or home infusion services. Per marbella request, outpt infusion has been arranged here starting tomorrow at 10 am. Pt to have iv vanco 1.5gm daily for several weeks. CM coorindated with wound care for assistance with dressing changes MWF during his infusion. Laureano from wound care and Shameka from outpt infusion in agreement. Marbella coverage requested per director Yumiko Lazaro. Pt provided a marbella application and he is to complete and return it to . DC medications () supply vouchered per and filled in the [facility]. Pt to pick them up on his way out of the building. Pt agreeable to the dc plan. He plans on driving himself to the appointments. He has an ENDO appt at 8:15am tomorrow as well. He has been provided supplies by wound care and instructed should he need to change his dressings prn. He is up ad rahul in his room. All parties updated. Infusion orders faxed to outpt infusion. DC home this afternoon.
--- NOTE | 2019-01-30 17:32 | NUR ---
Pt was transferred from the ICU, pt still very manipulative and condescending. VS stable POC followed. ONe IV lione on the left formard left intact since pt is going to OP infusion scheduled everyday , instruction given by CM. Wound dressing hcanged by wound care team, pt refused to have his wraps taken out aa dc pictures taken. Pt did not want to wait for transport to take him down and walked out since he had all dc instructions and other medications were to be picked up in out pharmacy. DC is now dc.
== END 2019-01-30 17:47 | disposition home or self-care (01) | DRG 616 ==
LOC: ER 18:59 → EROBS 21:31 → 4W 21:31 → ICU 01-28 12:28 → 4W 01-30 11:56 → ENTRNSPT 01-30 16:53 → EDTRNSPT 01-30 16:56 → 4W 01-30 17:47
PROVIDERS: Emergency Medicine; Hospitalist; Nurse Practitioner Family; ADMIT Internal Medicine
PROC: 0Y6P0Z3 Detachment at Right 1st Toe, Low, Open Approach (ICD-10-PCS; principal; 2019-01-26)
PROC: 0Y6Q0Z3 Detachment at Left 1st Toe, Low, Open Approach (ICD-10-PCS; principal; 2019-01-26)
DX: E10.69 Type 1 diabetes mellitus with other specified complication (principal); E43 Unspecified severe protein-calorie malnutrition; F11.20 Opioid dependence, uncomplicated; M86.8X7 Other osteomyelitis, ankle and foot; M87.877 Other osteonecrosis, right toe(s); M87.878 Other osteonecrosis, left toe(s); K92.0 Hematemesis; N18.3 Chronic kidney disease, stage 3 (moderate); E10.10 Type 1 diabetes mellitus with ketoacidosis without coma; I48.91 Unspecified atrial fibrillation; E10.36 Type 1 diabetes mellitus with diabetic cataract; E10.621 Type 1 diabetes mellitus with foot ulcer; L97.529 Non-pressure chronic ulcer of other part of left foot with unspecified severity; L97.519 Non-pressure chronic ulcer of other part of right foot with unspecified severity; N17.9 Acute kidney failure, unspecified; D72.829 Elevated white blood cell count, unspecified; I12.9 Hypertensive chronic kidney disease with stage 1 through stage 4 chronic kidney disease, or unspecified chronic kidney disease; E10.22 Type 1 diabetes mellitus with diabetic chronic kidney disease; E10.65 Type 1 diabetes mellitus with hyperglycemia; L03.032 Cellulitis of left toe; L03.031 Cellulitis of right toe; G89.4 Chronic pain syndrome; F41.1 Generalized anxiety disorder; F32.9 Major depressive disorder, single episode, unspecified; K21.9 Gastro-esophageal reflux disease without esophagitis; E10.42 Type 1 diabetes mellitus with diabetic polyneuropathy; E10.51 Type 1 diabetes mellitus with diabetic peripheral angiopathy without gangrene; R13.10 Dysphagia, unspecified; Z87.442 Personal history of urinary calculi; Z98.42 Cataract extraction status, left eye; Z98.41 Cataract extraction status, right eye; Z86.14 Personal history of Methicillin resistant Staphylococcus aureus infection; Z79.899 Other long term (current) drug therapy; Z79.4 Long term (current) use of insulin; Z88.8 Allergy status to other drugs, medicaments and biological substances; Z91.19 Patient's noncompliance with other medical treatment and regimen; Z83.3 Family history of diabetes mellitus; Z22.322 Carrier or suspected carrier of Methicillin resistant Staphylococcus aureus; Z68.22 Body mass index [BMI] 22.0-22.9, adult
CPT/HCPCS: 10040; 10045; 10078; 50101; 50386; 53078; 56526; 57091; 57180; 62110; 62900; 70005

== ENCOUNTER → 2019-01-31 | Outpatient (CLI) | payer OTHER ==
[~2019-01-31] MED LIST changes: +CARAFATE 1 GM TA1 G1 PO; +NORVASC10 MG PO; +PEPCID20 MG PO; +PRINIVIL5 MG PO; +PROTONIX40 M4 PO; +ZYVOX600 MG PO
[2019-01-31 10:15] VITALS: BP 152/100
--- NOTE | 2019-01-31 14:15 | NUR ---
IN FOR DAILY VANCOMYCIN INFUSION. PATIENT STATED TOLERATING VANCO INFUSIONS WITHOUT N/V, FEVER, CHILLS, DIARRHEA. HAS #7 PAIN TO BOTH FEET AND LEGS. TO PICKUP PAIN MEDICINE AFTER HIS INFUSION TODAY. PATIENT WAS DISCHARGED FROM 4W YESTERDAY. ADMISSION HISTORY AND ASSESSMENT COMPLETED. TOLERATED INFUSION WITHOUT INCIDENT. SALINE LOCKED IV FOR NEXT INFUSION. WEEKEND INSTRUCTIONS GIVEN. PROVIDED PHONE NUMBERS TO CALL 1 HOUR AHEAD OF ARRIVAL TO GET MEDICATION PREPARED. STATED UNDERSTANDING. DISMISSED IN STABLE CONDITION.
== END ==
LOC: OPONC 00:16
DX: E11.69 Type 2 diabetes mellitus with other specified complication (principal); M86.8X7 Other osteomyelitis, ankle and foot; L03.115 Cellulitis of right lower limb; L03.116 Cellulitis of left lower limb; Z79.4 Long term (current) use of insulin
CPT/HCPCS: 95000; 95001

== ENCOUNTER 2019-02-01 12:14 | Emergency (ER) | payer OTHER ==
[~2019-02-01] VITALS: Ht 177.8 cm; Wt 70.3 kg
[~2019-02-01 12:14] MED LIST changes: -PEPCID20 MG PO
[2019-02-01 13:11] LABS: ABSOLUTE NEUTROPHILS 6.6 thou/uL (1.4-8.2); BASOPHILS 0.5 % (0.0-2.0); EOSINOPHILS 1.7 % (0.0-3.0); HEMATOCRIT 35.8 % (42.0-52.0); HEMOGLOBIN 12.1 gm/dL (14.0-18.0); LYMPHOCYTES 12.7 % (24.0-44.0); MCH 29.5 pg (26.0-34.0); MCHC 33.6 g/dL (28.0-37.0); MCV 87.6 fL (80.0-100.0); MONOCYTES 7.7 % (1.0-8.0); PLATELET COUNT 279 thou/uL (150-400); POLYS 77.4 % (36.0-66.0); RBC 4.09 mil/uL (4.50-6.00); RDW 14.2 % (10.5-14.5); WBC 8.6 thou/uL (4.0-11.0)
[2019-02-01 13:21] LABS: CALCIUM 9.3 mg/dL (8.5-10.1); POTASSIUM 3.8 mmol/L (3.5-5.1)
[2019-02-01 13:28] LABS: ALBUMIN 2.5 g/dL (3.4-5.0); TOTAL BILIRUBIN 0.5 mg/dL (<0.1-1.0)
[2019-02-01 14:36] LABS: URINE BILIRUBIN NEGATIVE (Negative); URINE BLOOD TRACE (Negative); URINE CLARITY CLEAR; URINE COLOR YELLOW; URINE GLUCOSE-RANDOM* NEGATIVE (Negative); URINE KETONES 2+ (Negative); URINE LEUKOCYTES-REFLEX TRACE (Negative); URINE NITRITE-REFLEX NEGATIVE (Negative); URINE PROTEIN (DIPSTICK) 2+ (Negative); URINE SPECIFIC GRAVITY 1.015 (1.005-1.035); URINE UROBILINOGEN 0.2 E.U./dl (0.2-1.0)
[2019-02-01 14:55] LABS: BACTERIA-REFLEX None Seen /HPF (None Seen); CASTS None Seen /LPF (None Seen); SQUAMOUS None Seen /LPF (0-3); URINE RBC 0-2 Rare /HPF (0-2); URINE WBC-REFLEX 0-5 Rare /HPF (0-5)
[2019-02-01 14:56] LABS: CRYSTALS None Seen /LPF (None Seen)
[2019-02-01] MEDS ORDERED: PEPCID20 MG PO (15:02)
[2019-02-01 15:42] VITALS: BP 129/88
--- NOTE | 2019-02-02 13:16 | EKG ---
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: : [id number] Requested By: Sheila Burkett Order Number: [id number] MD: Aayush Colin Measurements Intervals [place] Rate: 93 P: 47 WA: 136 QRS: 32 QRSD: 89 T: 9 QT: 270 QTc: 336 Interpretive Statements Sinus rhythm Borderline T wave abnormalities Compared to ECG 10/26/2018 19:33:38 T-wave abnormality now present Sinus tachycardia no longer present Electronically Signed On 02-02-2019 13:16:22 MONOTYPER by Aayush Colin [email or web address] <ELECTRONICALLY SIGNED> By: Aayush Colin MD, [facility] 02/02/19 1316 1328 1328 Aayush Colin MD, FACC /EPI
== END 2019-02-01 15:43 | disposition home or self-care (01) ==
LOC: ER 12:14
PROVIDERS: Physician Assistant
DX: K20.9 Esophagitis, unspecified (principal); R10.13 Epigastric pain; I48.91 Unspecified atrial fibrillation; E10.40 Type 1 diabetes mellitus with diabetic neuropathy, unspecified; E10.22 Type 1 diabetes mellitus with diabetic chronic kidney disease; N18.3 Chronic kidney disease, stage 3 (moderate); K13.79 Other lesions of oral mucosa; F41.9 Anxiety disorder, unspecified; Z89.411 Acquired absence of right great toe; Z89.412 Acquired absence of left great toe; Z87.442 Personal history of urinary calculi; Z79.4 Long term (current) use of insulin; Z86.14 Personal history of Methicillin resistant Staphylococcus aureus infection; Z91.041 Radiographic dye allergy status

== ENCOUNTER → 2019-02-01 | Outpatient (CLI) | payer OTHER ==
[~2019-02-01] MED LIST changes: -ZYVOX600 MG PO
== END ==
LOC: OPONC 09:30
DX: E11.69 Type 2 diabetes mellitus with other specified complication (principal); M86.8X7 Other osteomyelitis, ankle and foot; L03.115 Cellulitis of right lower limb; L03.116 Cellulitis of left lower limb; Z79.4 Long term (current) use of insulin
CPT/HCPCS: 95000; 95001

== ENCOUNTER → 2019-02-02 | Outpatient (CLI) | payer OTHER ==
[~2019-02-02] MED LIST changes: +PEPCID20 MG PO; +ZYVOX600 MG PO
== END ==
LOC: OPONC 11:15
DX: E11.69 Type 2 diabetes mellitus with other specified complication (principal); M86.8X7 Other osteomyelitis, ankle and foot; L03.115 Cellulitis of right lower limb; L03.116 Cellulitis of left lower limb; Z79.4 Long term (current) use of insulin
CPT/HCPCS: 95000; 95001

== ENCOUNTER → 2019-02-03 | Outpatient (CLI) | payer OTHER ==
[2019-02-03 11:19] VITALS: BP 149/86
--- NOTE | 2019-02-03 11:27 | NUR ---
IN FOR DAILY VANCOMYCIN INFUSION. PATIENT COMPLAINING THAT HE HAS NOT BEEN ABLE TO EAT MUCH DUE TO MOUTH SORES. WHITE PATCH NOTED TO END OF TONGUE AND SMALL HEALING ULCER TO BOTTOM LIP. SPOKE WITH DR. DELGADO AND NEW ORDERS RECEIVED. SWABBED LIP ULCER FOR HERPES SIMPLEX AND SENT TO LAB. VANCO TROUGH DRAWN AND SENT TO LAB. LEONARDO WITH WOUND CARE CAME AND CHANGED DRESSINGS TO BOTH FEET. PATIENT ABLE TO DRINK LIQUIDS AND STATED HE HAS BEEN DRINKING SOME PROTEIN DRINKS. PRESCRIPTION FOR VALTREX CALLED IN TO [facility].
[2019-02-05 10:28] LABS: HSV PCR SOURCE LIP
[2019-02-05 23:10] LABS: HSV 1 DNA Positive (Negative); HSV 2 DNA Negative (Negative)
== END ==
LOC: OPONC 08:35
PROVIDERS: Specialist
DX: E11.69 Type 2 diabetes mellitus with other specified complication (principal); M86.8X7 Other osteomyelitis, ankle and foot; L03.115 Cellulitis of right lower limb; L03.116 Cellulitis of left lower limb; Z79.4 Long term (current) use of insulin
CPT/HCPCS: 95000; 95001

== ENCOUNTER → 2019-02-04 | Outpatient (CLI) | payer OTHER ==
[2019-02-04 13:14] VITALS: BP 132/94
--- NOTE | 2019-02-04 13:16 | NUR ---
IN FOR VANCOMYCIN INFUSION FOR OSTEOMYELITIS OF BOTH GREAT TOES. DENIED N/V, DIARRHEA, FEVER/CHILLS. STOMATITIS MUCH BETTER TODAY AND PATIENT STATED WAS ABLE TO EAT SOME FOOD LAST NIGHT. TOLERATED INFUSION WITHOUT INCIDENT. TO SEE DR. DELGADO HERE IN CLINIC TOMORRW. SALINE LOCKED IV. TO RETURN TOMORROW FOR THE SAME. DISMISSED IN STABLE CONDITION.
== END ==
LOC: OPONC 00:57
DX: E11.69 Type 2 diabetes mellitus with other specified complication (principal); M86.8X7 Other osteomyelitis, ankle and foot; L03.115 Cellulitis of right lower limb; L03.116 Cellulitis of left lower limb; Z79.4 Long term (current) use of insulin
CPT/HCPCS: 95000; 95001

== ENCOUNTER → 2019-02-05 | Outpatient (CLI) | payer OTHER ==
[2019-02-05 10:10] VITALS: BP 140/93
[2019-02-05 10:34] LABS: HEMATOCRIT 35.7 % (42.0-52.0); HEMOGLOBIN 11.8 gm/dL (14.0-18.0); MCH 29.1 pg (26.0-34.0); MCHC 33.1 g/dL (28.0-37.0); MCV 87.8 fL (80.0-100.0); RBC 4.07 mil/uL (4.50-6.00); RDW 14.2 % (10.5-14.5)
[2019-02-05 10:42] LABS: ALBUMIN 2.7 g/dL (3.4-5.0); CALCIUM 9.4 mg/dL (8.5-10.1); CREATININE 1.2 mg/dL (0.7-1.3); TOTAL BILIRUBIN 0.2 mg/dL (<0.1-1.0); TOTAL PROTEIN 6.8 g/dL (6.4-8.2)
--- NOTE | 2019-02-05 14:00 | NUR ---
PT HERE FOR DAILY IV VANCOMYCIN, LABS, CLINIC VISIT WITH DR. DELGADO AND DRESSING CHANGE TO BILAT 1ST TOES. SALINE LOCK PATENT LFA, LABS DRAWN FROM THIS, VANCO GIVEN WITHOUT INCIDENT. NO C/O PAIN IN FEET--HAS SOME NEUROPATHY. DRESSINGS REMOVED, SUTURES INTACT, TOES REMAIN A LITTLE SWOLLEN, BOTH WITH OPEN WOUNDS ON PADS OF TOES. NO DRAINAGE NOTED. WEARING WALKING SHOES AND MOSTLY STAYING OFF FEET. DENIES N/V/DIARRHEA, FEVER/CHILLS/SWEATS. ISSUE IS THAT HE CANNOT EAT D/T PAIN FROM MOUTH AND ESOPHAGEAL SORES. STATES THE ANTIVIRAL MEDICATION IS BEGINNING TO HELP RESOLVE THE SORES BUT STILL TOO PAINFUL TO EAT. DR. DELGADO ROUNDED, ASSESSED FEET AND ADDRESSED MUCOSITIS ISSUES. PRESCRIBED TYL #3 WHICH PT DECIDED NOT TO INFORMATICS PHYSICIAN TODAY BECAUSE FELT IT WOULDN'T HELP ANYWAY. GLENROY IN PHARMACY IS CHECKING IN WITH DR. DELGADO FOR SUBSTITUTION FOR MAGIC MOUTHWASH THEY CANNOT COMPOUND IT. BERONICA WITH CASE MANAGEMENT WILLING TO VOUCH FOR MEDS TO HELP PT WITH THIS PAYMENT. PT AWARE. PT KEEPING BLOOD SUGARS IN CONTROL. IS DRINKING PLENTY OF FLUIDS AND TAKING PROTEIN SHAKES TO KEEP NOURISHED. VERBALIZES UNDERSTANDING TO CONTINUE IV VANCO DAILY AND SEE DR. DELGADO AGAIN NEXT WEEK ON SUN. DISMISSED IN STABLE CONDITION. WILL RETURN IN THE MORNING.
== END ==
LOC: OPONC 00:15
PROVIDERS: Specialist
DX: E11.69 Type 2 diabetes mellitus with other specified complication (principal); M86.8X7 Other osteomyelitis, ankle and foot; L03.115 Cellulitis of right lower limb; L03.116 Cellulitis of left lower limb; Z79.4 Long term (current) use of insulin
CPT/HCPCS: 95000; 95001

== ENCOUNTER → 2019-02-06 | Outpatient (CLI) | payer OTHER ==
[~2019-02-06] MED LIST changes: -ZYVOX600 MG PO
[2019-02-06 11:07] VITALS: BP 151/100
--- NOTE | 2019-02-06 14:05 | NUR ---
IN FOR DAILY VANCOMYCIN INFUSION FOR BILATERAL GREAT TOE OSTEOMYELITIS. STATED FEELING WELL. DENIED DIARRHEA, FEVER/CHILLS, N/V, PAIN. STATED MOUTH SORES MUCH BETTER. TOLERATED INFUSION WITHOUT INCIDENT. SALINE LOCK LEFT IN FOR NEXT INFUSION TOMORROW. DISMISSED IN GOOD CONDITION.
== END ==
LOC: OPONC 02-04 10:12
DX: E11.69 Type 2 diabetes mellitus with other specified complication (principal); M86.8X7 Other osteomyelitis, ankle and foot; L03.115 Cellulitis of right lower limb; L03.116 Cellulitis of left lower limb; Z79.4 Long term (current) use of insulin
CPT/HCPCS: 95000; 95001

== ENCOUNTER → 2019-02-07 | Outpatient (CLI) | payer OTHER ==
[~2019-02-07] MED LIST changes: +ZYVOX600 MG PO
[2019-02-07 11:00] VITALS: BP 134/95
--- NOTE | 2019-02-07 14:05 | NUR ---
HERE FOR DAILY IV VANCOMYCIN. REPORTS DOING WELL. ESOPHAGEAL PAIN AND MUCOSITIS IMPROVING AND ABLE TO EAT NOW. DID NOT BLACK TOP MACHINE OPERATOR SCRIPTS WRITTEN BY DR. DELGADO AND PHARMACY NOTIFIED THAT PT DOES NOT WANT THEM AT THIS POINT IN TIME. LEONARDO, DIRECTOR OF DESIGN, CHANGED DRESSINGS ON BILAT 1ST TOES AGAIN TODAY. NEW IV PLACED SALINE LOCK LFA WOULD NOT FLUSH. VANCO TR DRAWN AND RESULTED AT 10. REPORTED [address] DR. DELGADO WHO INDICATED NO CHANGE IN PLAN AT THIS TIME. VANCOMYCIN 1700MG INFUSED OVER 2H 40 MIN. PT TOLERATED WITHOUT INCIDENT. REVIEWED PLAN WITH PT TO INFUSE IN THE ED OVER THE WEEKEND. VERBALIZES UNDERSTANDING. DIMSISSED IN STABLE CONDITION.
== END ==
LOC: OPONC 00:12 → EDSTATUS 14:40
DX: E11.69 Type 2 diabetes mellitus with other specified complication (principal); M86.8X7 Other osteomyelitis, ankle and foot; L03.115 Cellulitis of right lower limb; L03.116 Cellulitis of left lower limb; Z79.4 Long term (current) use of insulin
CPT/HCPCS: 95000; 95001

== ENCOUNTER → 2019-02-08 | Outpatient (CLI) | payer OTHER | LOC: OPONC 09:43 | DX: E11.69 Type 2 diabetes mellitus with other specified complication (principal); M86.8X7 Other osteomyelitis, ankle and foot; L03.115 Cellulitis of right lower limb; L03.116 Cellulitis of left lower limb; Z97.4 Presence of external hearing-aid | CPT/HCPCS: 95000; 95001 ==

== ENCOUNTER → 2019-02-09 | Outpatient (CLI) | payer OTHER | LOC: OPONC 09:16 | DX: E11.69 Type 2 diabetes mellitus with other specified complication (principal); M86.8X7 Other osteomyelitis, ankle and foot; L03.115 Cellulitis of right lower limb; L03.116 Cellulitis of left lower limb; Z79.4 Long term (current) use of insulin | CPT/HCPCS: 95000; 95001 ==

== ENCOUNTER → 2019-02-10 | Outpatient (CLI) | payer OTHER ==
[2019-02-10 10:45] VITALS: BP 131/85
--- NOTE | 2019-02-10 13:34 | NUR ---
IN FOR DAILY VANCOMYCIN INFUSION. IV IN RIGHT ARM PAINFUL SO REMOVED. NEW SALINE LOCK PLACED IN LEFT ARM. TOLERATED INFUSION WITHOUT INCIDENT. SALINE LOCKED IV. TO RETURN TOMORROW FOR NEXT INFUSION. DISMISSED IN STABLE CONDITION.
== END ==
LOC: OPONC 09:12
DX: E11.69 Type 2 diabetes mellitus with other specified complication (principal); M86.8X7 Other osteomyelitis, ankle and foot; L03.115 Cellulitis of right lower limb; L03.116 Cellulitis of left lower limb; Z79.4 Long term (current) use of insulin
CPT/HCPCS: 95000; 95001

== ENCOUNTER → 2019-02-11 | Outpatient (CLI) | payer OTHER ==
[2019-02-11 09:47] VITALS: BP 122/82
--- NOTE | 2019-02-11 13:05 | NUR ---
PT HERE FOR HIS DAILY IV VANCOMYCIN. REPORTS DOING OK. DENIES N/V/DIARRHEA, FEVER/CHILLS/SWEATS. DRESSINGS/STOCKINGS IN PLACE OVER BILAT GREAT TOES--WILL PLAN DRESSING CHANGE AGAIN TOMORROW. STATES MUCOSITIS, ESOPHAGITIS MOSTLY BETTER, ABLE TO EAT NOW. STATES KEEPING BLOOD SUGARS IN CONTROL. SALINE LOCK L FOREARM INTACT, VANCO INFUSED WITHOUT INCIDENT, LEFT SL IN PLACE FOR USE TOMORROW. PT DISMISSED IN STABLE CONDITION.
== END ==
LOC: OPONC 09:25
DX: E11.69 Type 2 diabetes mellitus with other specified complication (principal); M86.8X7 Other osteomyelitis, ankle and foot; L03.115 Cellulitis of right lower limb; L03.116 Cellulitis of left lower limb; Z79.4 Long term (current) use of insulin
CPT/HCPCS: 95000; 95001

== ENCOUNTER → 2019-02-12 | Outpatient (CLI) | payer OTHER ==
[2019-02-12 11:05] VITALS: BP 115/77
[2019-02-12 11:39] LABS: HEMATOCRIT 35.7 % (42.0-52.0); HEMOGLOBIN 11.8 gm/dL (14.0-18.0); MCH 29.4 pg (26.0-34.0); MCHC 33.1 g/dL (28.0-37.0); MCV 88.9 fL (80.0-100.0); RBC 4.02 mil/uL (4.50-6.00); RDW 14.7 % (10.5-14.5); WBC 8.9 thou/uL (4.0-11.0)
[2019-02-12 12:00] LABS: CALCIUM 9.8 mg/dL (8.5-10.1); CREATININE 1.4 mg/dL (0.7-1.3); POTASSIUM 3.9 mmol/L (3.5-5.1); TOTAL BILIRUBIN 0.2 mg/dL (<0.1-1.0); TOTAL PROTEIN 7.1 g/dL (6.4-8.2)
--- NOTE | 2019-02-12 14:05 | NUR ---
PT HERE FOR LAST DOSE VANCOMYCIN IV. TOLERATED WITHOUT INCIDENT, SALINE LOCK PULLED. SEEN BY DR. DELGADO WITH NEW ORDERS TO SWITCH TO PO ZYVOX. MAY RETURN HERE FOR WOUND CARE. TO RETURN WELL IN ONE WEEK FOR CLINIC VISIT WITH DR. DELGADO AND TO HAVE LABS DRAWN. WOUND CARE NURSE, LEONARDO, HERE TO CHANGE DRESSING ON BILAT GREAT TOES. SCRIPT FOR ZYVOX AND PAXIL CALLED TO [facility], VOUCHED BY EGG PROCESSOR, BERONICA BELTRE. PT INSTRUCTED TO LUNG GUN OPERATOR TODAY ON HIS WAY OUT AND TO START ZYVOX THIS EVENING AND RETURN HERE AGAIN ON SUNDAY FOR WOUND CARE. THIS NURSE ALSO CALLED AND SET UP A POST HOSPITAL FOLLOW UP VISIT WITH DR. MARTE FOR 02/18 AT 1000. PT INFORMED AND AGREEABLE TO GO TO THIS APPT. DISMISSED IN STABLE CONDITION. SCHEDULED TO RETURN SUNDAY.
--- NOTE | 2019-02-12 14:41 | NUR ---
WOUND CARE F/U; DRESSING CHANGE TODAY. THE BILATERAL TOE WOUNDS LOOK STABLE. STABLE SUTURE LINES. STABLE DIABETIC FOOT WOUND BILATERALLY TO THE PLANTAR SURFACE OF THE GREAT TOES. RECOMMEDNATIONS; CONTINUE CURRENT TREATMENT DISCUSSED WITH GAYLA
== END ==
LOC: OPONC 09:00
PROVIDERS: Specialist
DX: E11.69 Type 2 diabetes mellitus with other specified complication (principal); M86.8X7 Other osteomyelitis, ankle and foot; L03.115 Cellulitis of right lower limb; L03.116 Cellulitis of left lower limb; Z79.4 Long term (current) use of insulin
CPT/HCPCS: 95000; 95001

== ENCOUNTER → 2019-02-17 | Outpatient (CLI) | payer OTHER ==
--- NOTE | 2019-02-17 11:20 | NUR ---
HERE FOR CLINIC VISIT. WOUND CARE NURSE, LEONARDO, CHANGED DRESSING. PT REPORTS DOING WELL, FEELING WELL. DENIES N/V/DIARRHEA BUT STATES STOOLS ARE MUSHY. DENIES FEVER/CHILLS/SWEATS. REPORTS HAVING A TERRIBLE REACTION TO HIS ZYVOX THIS WEEKEND. DID OK FIRST 2 DAYS THEN AWAKED SUNDAY FEELING SUICIDAL AND TOTALLY OFF. STOPPED TAKING HIS ZYVOX AT THAT TIME AND STATES THIS FEELING RESOLVED. CALLED DR. DELGADO TO MAKE HIM AWARE. OK RECEIVED TO STOP MEDICATION. PT TO RETURN HERE AGAIN ON SUN FOR LABS AND VISIT WITH DR. DELGADO. PT'S APPT WITH DR. MARTE WILL BE ON WED AT 1030 PRIOR TO OUR CLINIC VISIT.
--- NOTE | 2019-02-17 15:12 | NUR ---
WOUND CARE FOLLOW UP; THE PATIENT PRESENTED TODAY FOR AN OUT PATIENT WOUND DRESSING CHANGE TO THE BILATERAL FEET. THE OUTER DRESSINGS WERE FILTHY TODAY, ALTHOUGH THE PRIMARY DRESSING WAS INTACT AND NOT CONTAMINATED. THE INTACT SUTURE LINES ARE STABLE. THE DIABETIC FOOT WOUNDS TO THE BILATERAL TOES HAVE NO S/S OF INFECTION AT THIS POINT. THE WOUNDS WERE CLEANSED WITH NORMAL SALINE/GUAZE, OPTIFAOM AG WAS APPLIED TO THE WOUND BEDS, SECURED WITH 2" STRETCH GAUZE,TAPE, KERLIX AND YAYA WRAP. THE PATIENT CONTINUE TO VOICE THAT HE NEEDS TO GET BACK TO WORK AND MAY NOT BE ABLE TO CONTINUE THE CURRENT M/W/F SCHEDULE.
== END ==
LOC: OPONC 08:55
DX: Z48.00 Encounter for change or removal of nonsurgical wound dressing (principal); E11.69 Type 2 diabetes mellitus with other specified complication; M86.8X7 Other osteomyelitis, ankle and foot; L03.115 Cellulitis of right lower limb; L03.116 Cellulitis of left lower limb; Z79.4 Long term (current) use of insulin
CPT/HCPCS: 91018

== ENCOUNTER → 2019-02-19 | Outpatient (CLI) | payer OTHER ==
[2019-02-19 12:40] VITALS: BP 132/85
[2019-02-19 13:14] LABS: HEMATOCRIT 37.8 % (42.0-52.0); HEMOGLOBIN 12.5 gm/dL (14.0-18.0); MCH 29.4 pg (26.0-34.0); RBC 4.25 mil/uL (4.50-6.00); RDW 14.9 % (10.5-14.5)
[2019-02-19 13:31] LABS: ALBUMIN 3.4 g/dL (3.4-5.0); CALCIUM 9.9 mg/dL (8.5-10.1); CREATININE 1.5 mg/dL (0.7-1.3); POTASSIUM 4.4 mmol/L (3.5-5.1); TOTAL BILIRUBIN 0.2 mg/dL (<0.1-1.0); TOTAL PROTEIN 7.7 g/dL (6.4-8.2)
--- NOTE | 2019-02-19 13:40 | NUR ---
HERE TODAY TO SEE DR. DELGADO, HAVE LABS AND TO HAVE DRESSING CHANGE ON BILAT GREAT TOES. WOUND CARE NURSE, LEONARDO, CHANGED DRESSING--PLEASE REFER TO HIS NOTES ON WOUND DOCUMENTATION. PT STATES HE'S BEEN DOING WELL OTHER THAN ONGOING ISSUES WITH SOME NAUSEA. DENIES DIARRHEA/CONSTIPATION, FEVER/CHILLS, PAIN. SEEN BY DR. DELGADO. PLAN IS TO CONTINUE DRESSING CHANGES 3X WEEKLY THEN REPEAT LABS AND VISIT WITH DR. DELGADO AGAIN IN ONE WEEK. SCRIPT GIVEN TO PT FOR ZOFRAN BY DR. DELGADO. DISMISSED IN STABLE CONDITION. WILL RETURN AGAIN ON SUN.
== END ==
LOC: OPONC 08:01
PROVIDERS: Specialist
DX: E11.69 Type 2 diabetes mellitus with other specified complication (principal); M86.8X7 Other osteomyelitis, ankle and foot; L03.115 Cellulitis of right lower limb; L03.116 Cellulitis of left lower limb; Z79.4 Long term (current) use of insulin
CPT/HCPCS: 91018

== ENCOUNTER → 2019-02-21 | Outpatient (CLI) | payer OTHER ==
--- NOTE | 2019-02-21 11:19 | NUR ---
WOUND CARE F/U; THE PATIENT PRESENTED TODAY AT HIS SCHEDULE TIME FOR A DRESSING CHANGE TO HIS BILATERAL GREAT TOES. THE DRESSINGS ARE INTACT BUT DIRTY. THE WOUNDS ARE MACERATED. THE RIGHT TOE HAS A SMALL BLISTER NEAR THE SUTURE LINE OF UNKOWN ORIGIN. THE PATIENT IS NOT ON ANY ANTIBIOTICS BY HIS OWN CHOICE. THE WOUNDS WERE MEASURED THE RIGHT GREAT TOE PLANTAR WAS 0.4 X 0.4 X 0.2 THE LEFT IS 1.1 X 1.1 X 0.3. THE WOUNDS WERE CLEANSED WITH NORMAL SALINE AND DRESSINGS APPLIED. REPORTED TO STAFF
--- NOTE | 2019-02-21 11:51 | NUR ---
IN FOR BILATERAL FEET DRESSING CHANGE. LEONARDO WITH WOUND CARE CHANGED DRESSINGS.
== END ==
LOC: OPONC 08:05
DX: Z48.00 Encounter for change or removal of nonsurgical wound dressing (principal); E11.69 Type 2 diabetes mellitus with other specified complication; M86.8X7 Other osteomyelitis, ankle and foot; L03.115 Cellulitis of right lower limb; L03.116 Cellulitis of left lower limb; Z79.4 Long term (current) use of insulin
CPT/HCPCS: 91018

== ENCOUNTER → 2019-02-24 | Outpatient (CLI) | payer OTHER ==
[2019-02-24 12:01] LABS: HEMATOCRIT 36.3 % (42.0-52.0); MCH 29.3 pg (26.0-34.0); MCHC 33.2 g/dL (28.0-37.0); MCV 88.2 fL (80.0-100.0); RBC 4.11 mil/uL (4.50-6.00); RDW 14.6 % (10.5-14.5); WBC 5.4 thou/uL (4.0-11.0)
[2019-02-24 12:11] LABS: ALBUMIN 3.1 g/dL (3.4-5.0); CALCIUM 9.4 mg/dL (8.5-10.1); CREATININE 1.4 mg/dL (0.7-1.3); POTASSIUM 4.3 mmol/L (3.5-5.1); TOTAL BILIRUBIN 0.2 mg/dL (<0.1-1.0); TOTAL PROTEIN 7.5 g/dL (6.4-8.2)
[2019-02-24 15:47] VITALS: BP 135/96
--- NOTE | 2019-02-24 15:58 | NUR ---
IN FOR WOUND CARE DRESSING CHANGE TO BILATERAL GREAT TOES. LEONARDO FROM WOUND CARE CAME AND CHANGED DRESSINGS. PATIENT COMPLAINING OF SWEATS ON AND OFF OVER THE WEEKEND, ALONG WITH INCREASED PAIN TO TOES, NAUSEA, POOR APPETITE, WEIGHT LOSS. NOTIFIED DR. DELGADO. RECEIVED NEW ORDER FOR LABS, CXR, AND FLU SWAB. THESE WERE COMPLETED. PATIENT LABS AND CXR OK. FLU SWAB CAME BACK POSITIVE FOR INFUENZA B. NOTIFIED DR. DELGADO. NEW ORDER FOR TAMIFLU RECEIVED. DR. DELGADO HAD TO CALL IN PRESCRIPTION PHARMACY WOUND NOT ALLOW THIS RN TO DO SO. INSTRUCTED PATIENT TO COMPENSATION ASSOCIATE PRESCRIPTION AND TAKE ONE TAB 2 TIMES DAILY FOR 5 DAYS. DISMISSED IN STABLE CONDITION. TO RETURN SUNDAY TO SEE DR. DELGADO.
== END ==
LOC: OPONC 09:02
PROVIDERS: Specialist
DX: E11.69 Type 2 diabetes mellitus with other specified complication (principal); M86.8X7 Other osteomyelitis, ankle and foot; L03.115 Cellulitis of right lower limb; L03.116 Cellulitis of left lower limb; Z79.4 Long term (current) use of insulin
CPT/HCPCS: 91018

== ENCOUNTER → 2019-02-26 | Outpatient (CLI) | payer OTHER ==
[2019-02-26 10:45] VITALS: BP 139/95
--- NOTE | 2019-02-26 13:08 | NUR ---
IN FOR CLINIC VISIT WITH DR. DELGADO AND DRESSING CHANGE TO TOES. PATIENT HAS INFLUENZA B, WHICH WAS DIAGNOSED ON SUNDAY THIS WEEK. DROPLET PRECAUTIONS FOLLOWED. LEONARDO FROM WOUND CARE CHANGED DRESSINGS. DR. DELGADO VISITED AND GAVE THE OK TO REMOVE THE STITCHES. LEONARDO REMOVED THE STITCHES AND APPLIED STERISTRIPS. WOUNDS TO BOTTOM OF BOTH GREAT TOES HEALING NICELY. INCISION TO BOTH TOES WELL APPROXIMATED, NO REDNESS OR DRAINAGE. LEONARDO ADVISED PATIENT TO CHANGE TOE DRESSINGS DAILY, APPLY TRIPLE ANTIBIOTIC OINTMENT AND COVER WITH BANDAID. PATIENT IS TO F/U WITH WILLY WEINSTEIN TO GET A PRIMARY PHYSICIAN VISIT. PHONE NUMBER GIVEN FOR WILLY WEINSTEIN. PATIENT STATED UNDERSTANDING.
--- NOTE | 2019-02-26 13:24 | NUR ---
WOUND CARE FOLLOW UP; THE WOUNDS ARE STABLE. NO ODOR OR PAIN REPORTED. THE SUTURES WERE REMOVED FROM BILATERAL GREAT TOES PER DR DELGADO. STERI-STRIPS WERE PLACED OPTIFAOM AG WAS APPLIED, SECURED WITH 2" STRETCH GAUZE,YAYA WRAP. PATIENT EDUCATION COMPLETED RE; WOUND CARE WHEN TO CALL A DOCTOR, S/S OF INFECTION ETC. DIDCUSSED WITH RN
== END ==
LOC: OPONC 09:57
DX: Z48.00 Encounter for change or removal of nonsurgical wound dressing (principal); I25.10 Atherosclerotic heart disease of native coronary artery without angina pectoris; E11.69 Type 2 diabetes mellitus with other specified complication; M86.8X7 Other osteomyelitis, ankle and foot; L03.115 Cellulitis of right lower limb; L03.116 Cellulitis of left lower limb; Z79.4 Long term (current) use of insulin
CPT/HCPCS: 91018; 95000

== ENCOUNTER 2019-03-07 23:41 | Inpatient (IN) | payer OTHER ==
[~2019-03-07] VITALS: Ht 177.8 cm; Wt 72.6 kg
--- NOTE | ~2019-03-07 | O ---
[facility] [place] [address] OPERATIVE REPORT Name: CARLOS STAHL Room #: 435-P ADM IN M.R.#: [id number] Admission: 03/08/19 Attend Phys: Jeremy Nugent MD Discharge: Date of : 83 Report #: [id number] THIS REPORT FOR: //name// CC: [facility] physician/PCP Jeremy Nugent DATE OF SERVICE: 03/10/2019 PREOPERATIVE DIAGNOSIS: Left great toe abscess. POSTOPERATIVE DIAGNOSIS: Left great toe abscess. PROCEDURE: Left great toe irrigation and debridement. SURGEON: Dr. Jd Dennis. ANESTHESIA: General. ESTIMATED BLOOD LOSS: Minimal. DRAINS: No drains. TOURNIQUET TIME: 15 minutes. DESCRIPTION OF PROCEDURE: The patient brought to the operating room where he was placed under general anesthesia. Once under adequate general anesthesia, his left lower extremity was prepped and draped in sterile manner. The extremity was elevated and tourniquet placed to 250 mmHg. Dorsal incision on the patient's previous scar was then made. Abundant purulence then did emanate from the toe at this point. Cultures were taken and the end of the toe was then irrigated copiously. The skin edges were excised during the incision. The patient did have a sesamoid bone just beneath where the ulcer was on his toe. This was then subsequently excised utilizing a 15 blade. The wound was irrigated copiously and closed with 2-0 nylon for the skin. The wound was dressed with Xeroform, 4 x 4s, and sterile soft compressive dressing was placed. Tourniquet was let down at 15 minutes. Toes are pink and warm with good capillary refill. There were no complications from the procedure. The patient tolerated the procedure well and went to the recovery room without incident. By: 1227 1231 Jd Dennis MD /nt
--- NOTE | ~2019-03-07 | HC ---
[facility] [place] [address] CONSULTATION Name: CARLOS STAHL Room #: 435-P ADM IN .R.#: [id number] Admission: 03/08/19 Attend Phys: Jeremy Nugent MD Discharge: Date of : 83 Report #: [id number] THIS REPORT FOR: //name// CC: [facility] physician/PCP Jeremy Nugent DATE OF SERVICE: 03/08/2019 WOUND CARE CONSULTATION REASON FOR CONSULTATION: Nonhealing surgical wounds of bilateral great toes, status post amputation of distal great toes by Dr. Villagomez on 02/01 in setting of diabetes mellitus type 1 with foot ulcers and osteomyelitis, admitted for cellulitis and sepsis. HISTORY OF PRESENT ILLNESS: The patient is a 33-year-old gentleman with diabetes mellitus type 1 who had been treated for diabetic ulcers of the right and left great toe with osteomyelitis. He had undergone amputation of the distal great toes by Dr. Jes Villagomez on 02/01/2019. He is now admitted for increased pain of the great toes with open draining wounds. He had recent fever and chills. The patient felt that the toe wounds were red, tender, draining, and infected. The patient is admitted for IV antibiotics. PAST MEDICAL HISTORY: Diabetes mellitus type 1, history of atrial fibrillation with ablation in 2009, history of MRSA of the foot wound, chronic kidney disease stage 3, history of kidney stones, bilateral cataract secondary to diabetes mellitus, history of anxiety, peripheral diabetic neuropathy, history of osteomyelitis of the great toes with amputation. PAST SURGICAL HISTORY: Ablation for atrial fibrillation, amputation of the left and right great distal toe by Dr. Villagomez on 02/01. MEDICATIONS: Norvasc, Prinivil, Lantus, and Humalog insulin. Currently receiving intravenous vancomycin. PHYSICAL EXAMINATION: GENERAL: Shows a healthy, well-appearing 33-year-old male. Patient is agitated, abusive, and uttering expletives. HEENT: Mucous membranes are moist. NECK: Supple. ABDOMEN: Soft. EXTREMITIES: Examination of the lower extremities shows surgical deformities of the left and right great toe. The patient has had distal toe amputations of the right and left great toe, both are enlarged and swollen. On the plantar surface of the right great toe, there is a small open wound with a slight amount of drainage. Wound measures approximately 2 mm x 3 mm. Left great toe looks worse [address] [address] CONSULTATION Name: CARLOS STAHL Room #: 435-P [facility].#: [id number] Admission: 03/08/19 Attend Phys: Jeremy Nugent MD Discharge: Date of : 83 Report #: [id number] and is more swollen, enlarged, and red with a 3 x 3 mm open wound with some drainage. Both great toes appear mildly cellulitic. There is no extension of the cellulitis from the toe to the foot. LABORATORY DATA: White blood count 15.6. Glucose 338. IMPRESSION: Diabetes mellitus type 1 with history of osteomyelitis of the right and left great toe, status post distal toe amputation by Dr. Villagomez on 02/01; nonhealing surgical wound of the feet, status post amputation; cellulitis of the left greater than right great toe with systemic symptoms and hypoglycemia; history of MRSA; history of diabetic neuropathy. PLAN: Wound cultures ordered of the open draining wound of the left foot. Continue IV vancomycin. Wound care with topical gentamicin ointment, Xeroform and gauze dressing. Dr. Villagomez should be notified. Wound care team will follow. By: 0949 [id number] Federico Carranza MD /nt
--- NOTE | ~2019-03-07 | HC ---
[facility] [place] [address] CONSULTATION Name: CARLOS STAHL Room #: 435-P ADM IN .R.#: [id number] Admission: 03/08/19 Attend Phys: Jeremy Nugent MD Discharge: Date of : 83 Report #: [id number] THIS REPORT FOR: //name// CC: [facility] physician/PCP Jeremy Nugent DATE OF SERVICE: 03/09/2019 REASON FOR CONSULTATION: Infection, left great toe. HISTORY OF PRESENT ILLNESS: The patient is a 33-year-old male, who underwent bilateral great toe amputations by myself on 01/21/2019. He was doing quite well until about a week and a half ago when he noticed increased swelling and some increase in pain on his left great toe. He was admitted and started on antibiotics. He has also been treating bilateral great toe ulcers, history of MRSA. PAST MEDICAL HISTORY: Significant for poorly controlled diabetes, hypertension, chronic kidney disease, atrial fibrillation, status post ablation, peripheral neuropathy, anxiety, history of MRSA in his feet, depression. ALLERGIES: INCLUDE DYE AND LINEZOLID. HOME MEDICATIONS: Include amlodipine, lisinopril, insulin, clonazepam, oxycodone, gabapentin, paroxetine. SOCIAL HISTORY: Denies smoking. Does drink alcohol, was working, but reports losing that job due to his recent hospitalization. Does not use any ambulatory aids. REVIEW OF SYSTEMS: EXTREMITIES/MUSCULOSKELETAL: Denies any other extremity area of swelling. Reports some decreased sensation in his extremities. PAST SURGICAL HISTORY: Bilateral great toe amputations as mentioned above. LABORATORY DATA: White blood cell count on 03/08/2019 was 15.6, is decreased at 9.3 on 03/09/2018, hemoglobin is 10.5, hematocrit 30.8, platelet count 225. Chemistry is grossly normal except for elevated blood glucose levels. PHYSICAL EXAMINATION: GENERAL: He is alert and oriented. He is well-developed, well-nourished male in no acute distress. He is obviously frustrated due to the recurrence of infection. He has been drinking. He had a big breakfast. He has been drinking soda and has a friend who is on the way with his lunch. VITAL SIGNS: Most recent vital signs show temperature of 37.2, heart rate 102, [facility] [address] [place] [address] CONSULTATION Name: CARLOS STAHL Room #: 435-P [facility] IN [facility].#: [id number] Admission: 03/08/19 Attend Phys: Jeremy Nugent MD Discharge: Date of : 83 Report #: [id number] respiratory rate 17, blood pressure 139/89, pulse oximetry 98% on room air. EXTREMITIES: Examination of his left great toe shows swelling and erythema with ___ palpation. There feels like there is fluid beneath the skin, most likely purulent. The plantar ulcer has fibrinous tissue as well. There is some purulent drainage from it. The surgical wound site looks healed; however, there is palpable fluid beneath the prior scar. RADIOGRAPHS: Three views of the left great toe show absence of the phalanx, no bony destruction of the proximal phalanx. IMPRESSION AND PLAN: Left great toe abscess. I discussed the diagnosis as well as treatment options with the patient. I recommend surgical debridement. I discussed using surgical incision, repair the wound with sutures, most likely place a drain, and ideally this would be done later today. He has just been drinking dark soda so the earliest would be 8 or 9 o'clock tonight. He wants this to be done tomorrow due to the fact that his mother cannot be here today and he has a friend bring him lunch. I discussed, I would prefer to day, but ultimately it is up to the patient. We discussed the risks, benefits, alternatives, complications briefly including inability to completely resolve the infection, necessitating more proximal level amputation, wound healing problems. I will make him n.p.o. after midnight and plan to perform a surgical debridement tomorrow as the schedule allows. I discussed that if I am the surgeon it will most likely be late in the afternoon or early evening and if one of my partner is able to do, it may be able to be done earlier. We will just have to see how schedule allows. By: 1303 [id number] Jes Villagomez MD /nt
[2019-03-07 23:42] VITALS: BP 150/102
[2019-03-08] VITALS (8 sets, daily range): BP systolic 124–150; BP diastolic 81–104
[2019-03-08 01:12] LABS: ANION GAP 9 mmol/L (7-16); BUN 13 mg/dL (7-18); CALCIUM 9.4 mg/dL (8.5-10.1); CHLORIDE 96 mmol/L (98-107); CO2 30 mmol/L (21-32); CREATININE 1.5 mg/dL (0.7-1.3); GLUCOSE 337 mg/dL (74-106); POTASSIUM 4.1 mmol/L (3.5-5.1); SODIUM 135 mmol/L (136-145)
[2019-03-08 01:19] LABS: ALBUMIN 3.3 g/dL (3.4-5.0); DIRECT BILIRUBIN < 0.1 mg/dL (<0.1-0.2); LIPASE 70 U/L (73-393); SGOT 12 U/L (15-37); SGPT 19 U/L (30-65); TOTAL BILIRUBIN 0.3 mg/dL (<0.1-1.0); TOTAL PROTEIN 7.7 g/dL (6.4-8.2)
[2019-03-08 01:20] LABS: ABSOLUTE NEUTROPHILS 12.9 thou/uL (1.4-8.2); BASOPHILS 0.7 % (0.0-2.0); EOSINOPHILS 0.7 % (0.0-3.0); HEMOGLOBIN 11.8 gm/dL (14.0-18.0); MCH 28.7 pg (26.0-34.0); MCHC 32.7 g/dL (28.0-37.0); MCV 87.8 fL (80.0-100.0); MONOCYTES 7.2 % (1.0-8.0); PLATELET COUNT 281 thou/uL (150-400); POLYS 82.4 % (36.0-66.0); RDW 14.3 % (10.5-14.5); WBC 15.6 thou/uL (4.0-11.0)
[2019-03-08 02:54] LABS: URINE BILIRUBIN NEGATIVE (Negative); URINE BLOOD NEGATIVE (Negative); URINE CLARITY CLEAR; URINE COLOR YELLOW; URINE GLUCOSE-RANDOM* 3+ (Negative); URINE KETONES NEGATIVE (Negative); URINE LEUKOCYTES-REFLEX NEGATIVE (Negative); URINE NITRITE-REFLEX NEGATIVE (Negative); URINE PROTEIN (DIPSTICK) 1+ (Negative); URINE UROBILINOGEN 0.2 E.U./dl (0.2-1.0)
[2019-03-08 03:10] LABS: CASTS None Seen /LPF (None Seen); MUCUS None Seen strn/LPF (None Seen); SQUAMOUS None Seen /LPF (0-3); URINE RBC None Seen /HPF (0-2); URINE WBC-REFLEX 0-5 Rare /HPF (0-5)
[2019-03-08 03:11] LABS: BACTERIA-REFLEX None Seen /HPF (None Seen); CRYSTALS None Seen /LPF (None Seen)
--- NOTE | 2019-03-08 06:41 | NUR ---
PT WAS ADMITTED TO THE FLOOR FROM ER TO THE UNIT AT 0400 IN A FAIR CONDITION.ADMISSION HX,EDUCATION AND ASSESSMENTS COMPLETED.PT UP ADLIB IN ROOM IN A STABLE CONDITION.WOUND NOTED ON HIS FERNANDO UNDER TOE.BC ON ADMISSION WAS 255.PT ON CONTACT ISOLATION FOR MRSA IN HIS WOUND.IVF AND IV ABX INFUSING ORDERED.PT RESTING ON HIS BED AT THIS TIME.CALL LIGHT WITHIN REACH.
--- NOTE | 2019-03-08 13:09 | NUR ---
PT CARE ASSUMED AT 0700. A&Ox4. DISCUSSED WITH PT THAT HE CANNOT USE HIS OWN BLOOD GLUCOSE MONITOR PER PROTOCOL WE HAVE TO USE OUR OWN. PT. BECAME VERY ANGRY AND STATED THAT I REFUSED TO GIVE HIM HIS INSULIN AND THAT IS WHY HIS VALUE IS OVER 400. ACTUAL NUMBER WAS 339 AND AFTER RECHECKING 341. PT REFUSED THAT ORDERED 10 UNITS WITH MEAL AND ADDITIONAL [address] BENDER WAS IN [facility] ROOM TO TALK TO PT AND PT AGREED TO TAKE 9. PT CONTINUES TO CHECK HIS OWN VALUES AND STATES MUCH HIGHER NUMBERS. WE ARE CHECKING AND GIVING INSULIN PER WHAT PT WANTS NOT WHAT OUR SLIDING SCALE STATES. DR. BENDER IS AWARE OF THIS. CULTURE WAS TAKEN AND SENT TO LAB. PICTURES OF TOE STILL NEED TO BE TAKEN. FLUIDS ARE INFUSING. CONSULTS HAVE BEEN CALLED IN. PT IS REQUESETING FOR HIS OXYCODONE TO BE EVERY 3 HOURS INSTEAD OF 6 DUE TO HIS TOLERENCE BEING HIGHER FROM TAKING IT FOR OVER 10 YEARS. BED IN LOW POSITION, LOCKED WITH BED ALARM IN PLACE. CALL LIGHT IN REACH.
--- NOTE | 2019-03-09 00:47 | NUR ---
ASSUMED CARE FROM DAY SHIFT PT EATING PIZZA AND BUFFLO WINGS WITH SODA, PT THEN TOOK BLOOD GLUCOSE WITH HIS OWN MACJINE AND REQUEST HIS DOSE THAT HE FELT HE SHOULD HAVE, BLOOD GLUCOSE THEN TAKEN BY HOSPITAL MACHINE AND PT REFUSE DOSAGE PER PROTOCOL. AFTER THREE HOUR PT THEN TOOK BLOOD GLUCOSE AND REQUEST INSULIN, GLUCOSE TAKEN BY [facility] MACHINE AND [facility] DINING ROOM ATTENDANT ORDER ONE TIME DOSE OF INSULIN. PT VERY NON-COMPLAINT WITH CARE THAT DOCTOR HAVE PRESCRIBED. PT NOW REQSTING TO TALK WITH NURSING SUGAR LABORATORY ASSISTANT TO " COMPLAIN ABOUT ALL THE STAFF HERE AT [facility].
--- NOTE | 2019-03-09 01:15 | NUR ---
ATTEMPTED TO PROVIDE CARE TO TOE PT REFUSED, NOTED AT THIS TIME THAT PT REFUSED TREATMENT AND PT IS ALERT AND ORIENTED X4
[2019-03-09 04:13] LABS: HEMATOCRIT 30.8 % (42.0-52.0); HEMOGLOBIN 10.5 gm/dL (14.0-18.0); MCHC 34.1 g/dL (28.0-37.0); RBC 3.5 mil/uL (4.50-6.00); RDW 14.5 % (10.5-14.5); WBC 9.3 thou/uL (4.0-11.0)
[2019-03-09 04:38] LABS: CALCIUM 9.5 mg/dL (8.5-10.1); CREATININE 1.3 mg/dL (0.7-1.3); POTASSIUM 3.9 mmol/L (3.5-5.1)
--- NOTE | 2019-03-09 06:26 | NUR ---
PT AGREED TO OINTMENT AND DRESSING TO FERNANDO GREST TOES.
[2019-03-09 08:13] VITALS: BP 139/89
--- NOTE | 2019-03-09 12:56 | NUR ---
PT WANTS S/S AND SCEDULED INSULIN WHEN HIS TAKE OUT FOOD IS BROUGHT IN BY GIRLFRIEND. ALSO WANTS DR NAVARRO TO DO I&D TOMMOROW SHE WANTS TO DO TODAY. BUT PT NEEDS TO BE NPO FOR 8 HOURS AND HE WANTS TO EAT LUNCH.
[2019-03-09 16:52] VITALS: BP 145/106
--- NOTE | 2019-03-09 17:52 | NUR ---
VANCO TROUGH LAB RESULT WAS [address] BARBARA DELGADO NEW ORDER DC VANCO 1250 MG AND START 1400 MG EVERY 12 HOURS STARTING AT 199903/09/19.PHARMACY CALLED ORDER PUT IN COMPUTER.
--- NOTE | 2019-03-09 18:00 | NUR ---
PT TO BE NPO AT MIDNIGHT.
[2019-03-09 19:10] VITALS: BP 120/69
--- NOTE | 2019-03-10 06:20 | NUR ---
ASSUMED CARE OF PT @1900 PT ASSESSED AT START OF SHIFT A7OX4 C/O PAIN SCHEDULED OXYCODONE GIVEN PT IRRITATED ABOUT PAIN MEDS BEING Q6 AND BEING NPO AT MIDNIGHT. INFORMED PT ABOUT PROTOCOL AND EDUCATION FOR TX. CALLED [facility] DIVISION SERVICE MANAGER FOR IV PAIN MEDS FENTAYLN ORDERED. CHARGED NURSE ABOUT TO GIVE PT FENTALYN PT STATED DOESN'T WANT IT WILL LIKE DILAUDID. CALLED ONCALL AND AFTER EDUCATION PT ACCEPTED MEDS. DRAINAGE NOTED ON LFT TOE AFTER PT GOT UP TO USE THE BATHROOM. WOUND REDRESS BLOOD SUGAR CHECKED 3X THIS SHIFT. WAS 306 AT 0456 PT INSIST ON HAVING INSULIN OR WILL CANCEL SURGERY CALL DIESEL INSTRUCTOR FOR INSULIN. ADMINISTERED 5UNITS OF LISPRO AND TO RECHECK BLOOD SUGAR AGAIN IN 4HRS IF IT DROPS CALL THE PROVIDER THIS NURSE WILL PASS MESSAGE ON TO AM NURSES. PRE OP CALLED @0615 THAT PT IS SCHEDULED FOR SURGERY THIS AM AND WILL BE BAGGAGE HANDLER AT 0645 WILL CONT WITH POC TILL EOS.
[2019-03-10 08:11] VITALS: BP 143/96
--- NOTE | 2019-03-10 08:44 | NUR ---
Nutrition: Assessed due to wound. Admit: delayed wound healing, severe sepsis, IDDM. Pt w/ ongoing L great toe abscess w/ increased drainage. Multiple admits in recent months. Recent hx bilateral distal toe amputations. Provider notes state ongoing plantar toe wounds, not healed, despite 4 wks IV antibiotics. Last A1c 11.6% per 01/2019, BG ranged 241-306 overnight. Per RN notes, very specific about what insulin doses he will take. Out of room for scheduled I&D procedure this AM. NPO since 0000, but ate 100% of all 3 meals yesterday. Per hx, usually has a very good appetite. Likes a lot of high protein foods. Reported 2-13# of recent wt loss on admit, but pt is up +4# from 1 mo ago. Do see 14# wt loss between Oct-Jan though, but no other malnutrition criteria met at this time. Will offer Beneprotein on trays BID for added protein options and follow po trends later this week once diet started s/p procedure. Anticipate low nutrition risk.
[2019-03-10 13:47] VITALS: BP 130/85
--- NOTE | 2019-03-10 14:01 | NUR ---
INITIAL ASSESSMENT: Pt evaluated for d/c planning needs. Reviewed chart and spoke with nurse and pt. Pt is alert and oriented. Pt was hospitalized at [facility] in January and d/c home with outpatient infusion at [facility]. CM vouched for his medications on d/c ($635). Pt does not have insurance. Pt plans on returning home on d/c from hospital. Will remain available to assist as needed.
--- NOTE | 2019-03-10 15:00 | NUR ---
ASSUMED CARE PT SHIFT CHANGE. ASSESSMENT CHARTED. MEDS GIVEN PER MAY. PT UP SBA TOLERATING WELL. VSS. O2 SATS WNL ON ROOM AIR. C/O PAIN--MANAGED WITH PO AND IV PAIN MEDS. I&D THIS SHIFT ON LEFT GREAT TOE. TOE CURRENTLY WRAPPED WITH ORIGINAL SURGICAL DRESSING. VSS POST PROCEDURE. PT EXPRESSING ATTITUDE WITH NURSING STAFF REGARDING CLEAR LIQUID DIET POST PROCEDURE, EDUCATED ON IMPORTANCE OF SLOWLY ADVANCING DIET. PT STILL ADAMENT IN HAVING AN ADVANCED DIET. PHYSICIAN NOTIFIED, ORDERS RECEIVED. PT DENYING OF NEEDS/CONCERNS AT THIS TIME. REPORT HANDED OFF TO NURSE GLYNN AT APPROX 1430.
--- NOTE | 2019-03-10 15:14 | NUR ---
REC REPORT ON PT AT THIS TIME FROM DEPARTING GAYLA AMES. IMMEDIATE DEMANDS FOR 'ICE CREAM, CHECK MY BLOOD SUGAR, AND FENTANYL'. WILL CONTINUE TO MONITOR
[2019-03-11 02:49] VITALS: BP 131/90
--- NOTE | 2019-03-11 03:32 | NUR ---
ASSUMED PT CARE AT 1900. PT REFUSES INSULIN UNTIL AFTER HAVE EATEN. REQUIRED 4 UNITS BUT ONLY WANTED 2 AT THAT TIME. FENTANYL AND OXYCODONE GIVEN THROUGHOUT THE SHIFT. EDUCATED PT ON THE SHORT EFFECTIVE TIME OF IV PAIN MEDS, PT STATED HE DOESNT WANT THE IV FENTANYL ANYMORE. UP WALKING AROUND UNIT. COMPLAINING OF SEVERE PAIN IN FOOT. DID NOT SLEEP MUCH, BUT RESPECTFUL TOWARDS THE RN TONIGHT.
[2019-03-11 06:49] LABS: HEMATOCRIT 32.2 % (42.0-52.0); HEMOGLOBIN 10.7 gm/dL (14.0-18.0)
[2019-03-11 07:04] LABS: POTASSIUM 3.8 mmol/L (3.5-5.1)
[2019-03-11 08:00] VITALS: BP 138/92
[2019-03-11 16:32] VITALS: BP 139/96
--- NOTE | 2019-03-11 18:18 | NUR ---
Received awake on bed. Due medications given as prescribed, able to swallow meds w/o difficulty. A+O, pt pleasant and cooperative with care except for insulin dosage. On room air. Up ad rahul. On carb controlled diet; no nausea, no vomiting and no abdominal pain noted. On blood sugar monitoring- taken and recorded accordingly; on sliding scale insulin- pt dictates how much insulin he wants to received and non compliant with the ordered dose- Dr Geiger informed and aware. Complained of pain, due PRN pain meds given as prescribed. Independent with ADLs. Pt seen by Wound team today and dressing change done; dressing at Leg C/D/I. With SL at L AC- on IV antibiotics. Maintained on isolation due to MRSA at wound. Continent of B/B- able to go to the bathroom. Pt got upset this afternoon because he's pain medications were changed from Oxycodone, he said he has better pain relief from [place] and pt tried to limit the need to ask for pain meds until he can't handle it, no aggressive behavior noted, he calmly expressed his frustration- Dr Geiger informed and he changed it back to Oxycodone- given as prescribed. To continue monitoring patient.
[2019-03-11 19:30] VITALS: BP 149/94
--- NOTE | 2019-03-12 02:11 | NUR ---
PATIENT AOX4 MAKES NEEDS KNOWN. PATIENT IS UP AT [place]. PAIN CONTROLLED THIS SHIFT. PATIENT HAS DRESSING ON RIGHT AND LEFT GREAT TOE C/D/I. PATIENT BLOOD SUGAR WAS 280 AT HS AND REQUESTED 10 UNITS OF HUMALOG AND 30 UNITS OF LANTUS. PATIENT IN BED ASLEEP AT THIS TIME BREATHING REGULAR AND UNLABOURED.
[2019-03-12 07:50] VITALS: BP 130/95
--- NOTE | 2019-03-12 11:25 | NUR ---
Received awake on bed. Due medications given as prescribed, able to swallow meds w/o difficulty. A+Ox4, pt has been pleasant and cooperative with care. On blood sugar monitoring, taken and recorded accordingly- on sliding scale insulin, doctor aware that the patient dictates how much insulin he is going to have. Up ad rahul. Maintained on isolation due to MRSA of his wound. Dressing at L Leg- C/D/I. On carb controlled diet, tolerating well; no nausea, no vomiting and no abdominal pain noted. With SL at AC on IV antibiotics. Complained of pain, due PRN pain meds given as prescribed.
[2019-03-12 19:44] VITALS: BP 144/402
[2019-03-13 03:53] VITALS: BP 143/93
--- NOTE | 2019-03-13 06:33 | NUR ---
PT AMBULATING TO BATHROOM INDEPENDENTLY AND IS TOLERATING WELL. OXY PROVIDING PAIN RELIEF. RESTING COMFORTABLY. NO NEEDS VOICED. CALL LIGHT WITHIN REACH. WILL CONTINUE TO PROVIDE FREQUENT OBSERVATION.
[2019-03-13 07:34] VITALS: BP 163/78
[2019-03-13 13:23] VITALS: BP 129/84
--- NOTE | 2019-03-13 14:07 | NUR ---
FAXED FACE SHEET TO [facility] TO SEE PT RE: DISABILITY RECEIVED CONFIRMATION. DP TO FOLLOW.
[2019-03-13 19:30] VITALS: BP 136/94
--- NOTE | 2019-03-13 20:11 | NUR ---
Assumed care of pt at 0700. pt a&ox4. Up ad rahul. Accu check achs. Pt requests amount of insulin based on what he will eat. Education provided. Dressing changed. Call light within reach. Report given to daljit SHUKLA.
--- NOTE | 2019-03-14 03:04 | NUR ---
ASSESSMENT COMPLETED.PT C/O PAIN ON HIS L GREAT TOE, MANAGED WITH MED.DRSG TO THE L TOE CHANGED AT HS.PT C/O OF MUSCLE SORENESS WITH NEW MED,STATED THAT HE DOESN'T WANT TO TAKE THE RIFAMPIN ANYMORE.UP ADLIB IN ROOM.BG MONITORED ORDERED,PT NEEDED 9 UNITS OF INSULIN FOR BG OF 329 BUT PT ASKED FOR 6 UNITS INSTEAD.PT NOT COMPLIANT WITH HIS DM DIET,EDUCATION GIVEN PT VOICED UNDERSTA- NDING. ISOLATION PRECAUTIONS MAINTAINED.CALL LIGHT WITHIN REACH.
[2019-03-14 03:45] VITALS: BP 139/96
[2019-03-14 07:48] VITALS: BP 137/94
[2019-03-14] MEDS ORDERED: BACTRIM DS TAB1 EACH PO (13:21)
[2019-03-14] MEDS ORDERED: RIFAMPIN 300 M300 MG PO (13:21)
[2019-03-14 15:59] VITALS: BP 129/84
--- NOTE | 2019-03-14 16:30 | NUR ---
PT'S SCRIPT FOR BACTRIM TAKEN TO [facility] & HE WILL PAY THE $10.OO AT PICK-UP. NO OTHER DC NEEDS AT THIS TIME. PT IS ABLE TO CHANGE HIS OWN DRESSING.
--- NOTE | 2019-03-14 16:45 | NUR ---
Assumed care of pt at 0700. Up ad rahul. Dressing changed. Per noc RN, pt had reaction to Rifampin. Provider aware. States to continue Bactrim only. Bactrim prescription sent to outpatient pharmacy for patient to roll picker at discharge. Pain controlled with prn pain meds. Pt discharging home.
== END 2019-03-14 16:47 | disposition home or self-care (01) | DRG 856 ==
LOC: ER 23:41 → 4S 03-08 03:20 → EROBS 03-08 03:20 → 4S 03-08 04:00 → 2N 03-09 11:00 → 4S 03-09 11:04
PROVIDERS: Emergency Medicine; Nurse Practitioner Family; Orthopaedic Surgery Foot and Ankle Surgery; ADMIT Internal Medicine
PROC: 0QBP0ZZ Excision of Left Metatarsal, Open Approach (ICD-10-PCS; principal; 2019-03-10)
DX: T81.41XA Infection following a procedure, superficial incisional surgical site, initial encounter (principal); A41.9 Sepsis, unspecified organism; R65.20 Severe sepsis without septic shock; L02.612 Cutaneous abscess of left foot; M86.8X7 Other osteomyelitis, ankle and foot; E44.1 Mild protein-calorie malnutrition; E10.42 Type 1 diabetes mellitus with diabetic polyneuropathy; L03.032 Cellulitis of left toe; L03.031 Cellulitis of right toe; F32.9 Major depressive disorder, single episode, unspecified; Y83.5 Amputation of limb(s) as the cause of abnormal reaction of the patient, or of later complication, without mention of misadventure at the time of the procedure; S98.112A Complete traumatic amputation of left great toe, initial encounter; X58.XXXA Exposure to other specified factors, initial encounter; G89.4 Chronic pain syndrome; E10.621 Type 1 diabetes mellitus with foot ulcer; L97.519 Non-pressure chronic ulcer of other part of right foot with unspecified severity; L97.529 Non-pressure chronic ulcer of other part of left foot with unspecified severity; E10.65 Type 1 diabetes mellitus with hyperglycemia; I48.91 Unspecified atrial fibrillation; F41.9 Anxiety disorder, unspecified; N18.3 Chronic kidney disease, stage 3 (moderate); E10.22 Type 1 diabetes mellitus with diabetic chronic kidney disease; E10.69 Type 1 diabetes mellitus with other specified complication; Z89.412 Acquired absence of left great toe; Z89.411 Acquired absence of right great toe; Z86.14 Personal history of Methicillin resistant Staphylococcus aureus infection; Z87.442 Personal history of urinary calculi; Z79.899 Other long term (current) drug therapy; Z79.4 Long term (current) use of insulin; Z91.041 Radiographic dye allergy status; Z88.8 Allergy status to other drugs, medicaments and biological substances; Y92.89 Other specified places as the place of occurrence of the external cause; Y93.89 Activity, other specified; Y99.8 Other external cause status; Z83.3 Family history of diabetes mellitus; Z91.14 Patient's other noncompliance with medication regimen; Z79.891 Long term (current) use of opiate analgesic; Z68.23 Body mass index [BMI] 23.0-23.9, adult
CPT/HCPCS: 10195; 50010; 50101; 50386; 50951; 56525; 57091; 57178; 62110; 62900; 70005

== ENCOUNTER → 2019-03-21 | Outpatient (CLI) | payer OTHER ==
[~2019-03-21] MED LIST changes: +BACTRIM DS TAB1 EACH PO; +RIFAMPIN 300 M300 MG PO
[2019-03-21 10:00] VITALS: BP 113/87
[2019-03-21 10:39] LABS: HEMATOCRIT 35.6 % (42.0-52.0); HEMOGLOBIN 11.9 gm/dL (14.0-18.0); MCH 29.6 pg (26.0-34.0); MCHC 33.4 g/dL (28.0-37.0); MCV 88.5 fL (80.0-100.0); RBC 4.02 mil/uL (4.50-6.00); RDW 14.9 % (10.5-14.5); WBC 6.4 thou/uL (4.0-11.0)
[2019-03-21 10:59] LABS: ALBUMIN 3.5 g/dL (3.4-5.0); CALCIUM 10.1 mg/dL (8.5-10.1); CREATININE 1.6 mg/dL (0.7-1.3); POTASSIUM 4.7 mmol/L (3.5-5.1); TOTAL BILIRUBIN 0.2 mg/dL (<0.1-1.0); TOTAL PROTEIN 8.2 g/dL (6.4-8.2)
--- NOTE | 2019-03-21 12:05 | NUR ---
IN FOR CLINIC VISIT WITH DR. DELGADO. LABS DRAWN. DR. DELGADO VISITED. PATIENT IS TO CONTINUE THE SAME AND FOLLOWUP IN ONE WEEK WITH LABS. WOUND CARE NURSE LEONARDO TRIMMED CALLOUS AND APPLIED CLEAN DRESSING TO BILATERAL GREAT TOES. WOUNDS TO BOTTOM OF TOES HEALING, PINK WITH GRANULATION TISSUE. LEFT TOE SUTURES INTACT. PATIENT TOLERATED ALL WELL. DISMISSED IN STABLE CONDITION.
== END ==
LOC: OPONC 09:03
PROVIDERS: Specialist
DX: E11.621 Type 2 diabetes mellitus with foot ulcer (principal); L97.521 Non-pressure chronic ulcer of other part of left foot limited to breakdown of skin; A49.02 Methicillin resistant Staphylococcus aureus infection, unspecified site
CPT/HCPCS: 91018

== ENCOUNTER 2019-05-01 17:44 | Emergency (ER) | payer OTHER ==
[~2019-05-01] VITALS: Ht 177.8 cm; Wt 74.8 kg
[2019-05-01 17:44] VITALS: BP 164/122
[2019-05-01] MEDS ORDERED: PHENERGAN 25 MG25 MG PO (19:07)
== END 2019-05-01 19:16 | disposition home or self-care (01) ==
LOC: ER 17:44
DX: F11.20 Opioid dependence, uncomplicated (principal); F32.9 Major depressive disorder, single episode, unspecified; E10.22 Type 1 diabetes mellitus with diabetic chronic kidney disease; N18.3 Chronic kidney disease, stage 3 (moderate); I48.91 Unspecified atrial fibrillation; F41.9 Anxiety disorder, unspecified; Z86.14 Personal history of Methicillin resistant Staphylococcus aureus infection; Z91.041 Radiographic dye allergy status; Z89.421 Acquired absence of other right toe(s); Z89.422 Acquired absence of other left toe(s)

== ENCOUNTER 2020-02-13 23:50 | Emergency (ER) | payer OTHER ==
[~2020-02-13] VITALS: Ht 177.8 cm; Wt 79.4 kg
[~2020-02-13 23:50] MED LIST changes: +PHENERGAN 25 MG25 MG PO
[2020-02-14 01:49] VITALS: BP 150/98
== END 2020-02-14 01:33 | disposition home or self-care (01) ==
LOC: ER 23:50
DX: T38.3X1A Poisoning by insulin and oral hypoglycemic [antidiabetic] drugs, accidental (unintentional), initial encounter (principal); E10.649 Type 1 diabetes mellitus with hypoglycemia without coma; I48.91 Unspecified atrial fibrillation; N18.30 Chronic kidney disease, stage 3 unspecified; Z79.4 Long term (current) use of insulin; Z79.899 Other long term (current) drug therapy; Z88.5 Allergy status to narcotic agent; Z88.8 Allergy status to other drugs, medicaments and biological substances; Y92.89 Other specified places as the place of occurrence of the external cause

== ENCOUNTER 2020-06-28 20:23 | Inpatient (IN) | payer OTHER ==
[~2020-06-28] VITALS: Ht 177.8 cm; Wt 88.9 kg
[2020-06-28 20:27] VITALS: BP 143/89
[2020-06-28 21:03] LABS: BASOPHILS 0.3 % (0.0-2.0); EOSINOPHILS 0.1 % (0.0-3.0); HEMATOCRIT 38.2 % (42.0-52.0); HEMOGLOBIN 12.6 gm/dL (14.0-18.0); LYMPHOCYTES 4.8 % (24.0-44.0); MCH 29.4 pg (26.0-34.0); MCHC 33.1 g/dL (28.0-37.0); MCV 88.7 fL (80.0-100.0); PLATELET COUNT 183 thou/uL (150-400); POLYS 88.8 % (36.0-66.0); RDW 14.7 % (10.5-14.5); WBC 11.3 thou/uL (4.0-11.0)
[2020-06-28 21:08] LABS: CREATININE 1.5 mg/dL (0.7-1.3); POTASSIUM 4.3 mmol/L (3.5-5.1)
[2020-06-28 21:14] LABS: ALBUMIN 3.1 g/dL (3.4-5.0); DIRECT BILIRUBIN 0.1 mg/dL (<0.1-0.2); TOTAL BILIRUBIN 0.6 mg/dL (0.2-1.0); TOTAL PROTEIN 7.4 g/dL (6.4-8.2)
[2020-06-28 23:32] LABS: URINE BILIRUBIN NEGATIVE (Negative); URINE BLOOD 1+ (Negative); URINE CLARITY CLEAR; URINE COLOR YELLOW; URINE GLUCOSE-RANDOM* 3+ (Negative); URINE KETONES 3+ (Negative); URINE LEUKOCYTES-REFLEX NEGATIVE (Negative); URINE NITRITE-REFLEX NEGATIVE (Negative); URINE PROTEIN (DIPSTICK) 3+ (Negative); URINE SPECIFIC GRAVITY 1.025 (1.005-1.035); URINE UROBILINOGEN 0.2 E.U./dl (0.2-1.0)
[2020-06-28 23:53] LABS: BACTERIA-REFLEX 1-9 Few /HPF (None Seen); CASTS None Seen /LPF (None Seen); CRYSTALS None Seen /LPF (None Seen); MUCUS 4-6 Moderate strn/LPF (None Seen); SQUAMOUS 0-3 Few /LPF (0-3); URINE RBC 3-10 Few /HPF (0-2); URINE WBC-REFLEX 0-5 Rare /HPF (0-5)
[2020-06-28] MEDS ORDERED: ROXICODONE30 MG PO (23:59)
[2020-06-29 01:39] VITALS: BP 167/100
[2020-06-29 01:59] VITALS: BP 154/98
[2020-06-29 02:26] VITALS: BP 157/104
--- NOTE | 2020-06-29 03:04 | NUR ---
PT HAD NEEDLE IN HIS BED AND WAS OBSERVED BY AIDE TO PICK IT UP AND PUT IN HIS POCKET. BAR POINTER CAME TO NURSE AND REPORTED PT HAD A BOTTLE OF INSULIN IN HIS POCKET. NURSE ASKED PT FOR NEEDLE AND MEDICINE AND PT GAVE TO THE NURSE THE BOTTLE OF INSULIN HAD VERY FEW DROPS OF INSULIN IN IT. BAR POINTER AND PROVIDER NOTIFIED. BOTTLE WILL BE SENT TO PHARMACY.
--- NOTE | 2020-06-29 03:22 | NUR ---
ADMIT FROM ED. PT WAS AT HOME HAVING FEVER, PAIN AND DIZZINESS WITH CHRONIC FOOT WOUNDS AND R GROIN SWELLING. PICTURE TAKEN OF L AND R TOES, WITH AMPUTATIONS. IVF INTACT. PT VERBALIZED TO CALL FOR ASSIST WITH AMBULATION IF NEEDED.
--- NOTE | 2020-06-29 04:49 | NUR ---
PROVIDER EDUCATED PT IN ED THAT HE WOULD NOT RECEIVE PAIN MEDICATIONS OTHER THAN THE ONES HE WAS TAKING AT HOME, PT HAS HISTORY OF DRUG SEEKING BEHAVIORS. PT HAS NOT ASKED FOR PRN PAIN MEDS SINCE INITIAL REQUEST.
[2020-06-29 06:13] LABS: HEMATOCRIT 37.6 % (42.0-52.0); HEMOGLOBIN 12.1 gm/dL (14.0-18.0); MCH 28.9 pg (26.0-34.0); MCHC 32.3 g/dL (28.0-37.0); MCV 89.4 fL (80.0-100.0); RBC 4.2 mil/uL (4.50-6.00); RDW 14.6 % (10.5-14.5); WBC 7.8 thou/uL (4.0-11.0)
[2020-06-29 06:34] LABS: CALCIUM 8.8 mg/dL (8.5-10.1); CREATININE 1.4 mg/dL (0.7-1.3); POTASSIUM 4.1 mmol/L (3.5-5.1)
[2020-06-29 08:46] VITALS: BP 138/103
--- NOTE | 2020-06-29 10:32 | NUR ---
Assumed care of pt at 0700. Pt a&ox4. C/o pain in rt foot. Provider changed pain medication from oxycodone to hydrocodone. Pt voices concern and anger that hydrocodone will not help with pain. Nurse called doctor. Doctor states to continue hydrocodone today. IVF and IV antibiotics infusing. Wound care consulted. Call light within reach. Will continue to monitor.
--- NOTE | 2020-06-29 12:03 | NUR ---
WOUND CONSULT; THE PATIENT IS HERE TODAY WITH VERY MINOR WOUNDS TO HIS BILATERAL TOES. HE IS A DIABETIC. HE HAS S/S CONSITANT WITH DRUG SEEKING BEHAVIORS. HE SHOWS NO OUTWARD, IDENTIFIABLE S/S OF PAIN. NO S/S OF INFECTIONS VISABLE IN THE LOCAL ASSESSMENT. HE IS A WELL KNOWN PATIENT HERE AT [facility]. HE WAS ASSESSED BY DR TERESA REGAN AND JERMAINE MTZ. DR DE LA CRUZ ORDERED AQUACEL AG,KERLIX DRESSING CHANGES. I COMPLETED THE DRESSINGS WITH NO S/S OF PROCEEDURAL PAIN. RN PRESENT.
--- NOTE | 2020-06-29 15:26 | NUR ---
ASSESSMENT: CM REVIEWED CHART AND SPOKE WITH PT. PT IS ALERT AND ORIENTED X4. PT WAS ADMITTED DUE TO RT FOOT CELLULITIS. PT HAS HX OF DIABETES TYPE 1 WELL GREAT TOE AMPUTATION. PT IS CURRENTLY ON IV ANBX. PT REPORTS THAT HE LIVES WITH A ROOMATE IN A HOUSE. PT REPORTS BEING FULLY INDEPENDENT WITH ADLS AND AMBULATION. PT REPORTS THAT HIS PCP IS DR. LORI CLIFTON. PT DENIES ANY HX OF HH OR SNF. CM DISCUSSED ROLE. PT DOES NOT ANTICIPATE HAVING ANY NEEDS FROM CM. CM WILL CONTINUE TO FOLLOW.
[2020-06-29 15:32] VITALS: BP 124/88
--- NOTE | 2020-06-29 17:12 | EKG ---
[place] [address] 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 Coach: ARNAUD : 1985 Requested By: Inocencia Staton Order Number: [id number] MD: Aayush Colin Measurements Intervals [place] Rate: 140 P: 56 NC: 127 QRS: 33 QRSD: 92 T: -2 QT: 294 QTc: 449 Interpretive Statements Sinus tachycardia Low voltage, precordial leads Compared to ECG 02/01/2019 13:28:36 T-wave abnormality no longer present Electronically Signed On 06-29-2020 17:12:15 CDT by Aayush Colin [email or web address] <ELECTRONICALLY SIGNED> By: Aayush Colin MD, [facility] 06/29/201711 34 34 Aayush Colin MD, FACC /EPI
[2020-06-29 19:43] VITALS: BP 134/96
--- NOTE | 2020-06-29 23:49 | NUR ---
ASSESSED AT START OF SHIFT 1900. PT A&OX4 RATES PAIN 6/10 IN GROIN AREA. PO OXYCODONE GIVEN. PT UP AD MAXWELL TO THE BATHROOM. IV INTACT AND FLUIDS INFUSING. BSG SUGAR CHECKED 231 PT REQUESTED 4 UNITS ONLY THIS NURSE PROVIDED EDUCATION. AN HOUR LATER PT CALLED THIS NURSE STATING HIS BLOOD SUGAR IS HIGH AND NEEDS THE REMAINING 6 UNIT. BLOOD SUGAR RECHECKED 285 WOOD HEEL FLAP RUBBER CLOD PULLER NOTIFIED. EDUCATED PT AGIN ABOUT INSULIN ADMINISTRATION AND CHECKS PER POLICY. PT STATED "HE'S AFRAID OF HAVING A LOW SUGAR" AND THAT HE WON'T EAT MUCH AT NIGHT TIME. 6 UNIT GIVEN PER PT AND PROVIDER ORDER. WILL CONT TO MONITOR. FERNANDO EXT DRESSING C/D/I.
[2020-06-30 02:31] VITALS: BP 166/117
[2020-06-30 05:52] VITALS: BP 162/113
[2020-06-30 07:38] VITALS: BP 134/88
[2020-06-30] MEDS ORDERED: KEFLEX750 MG PO (09:33)
[2020-06-30] MEDS ORDERED: OXYCODONE HCL E15 MG PO (09:33)
[2020-06-30 11:09] VITALS: BP 134/88
--- NOTE | 2020-06-30 11:24 | NUR ---
on-going assessment: PT HAS ORDERS TO DISCHARGE HOME TODAY NO NEEDS.
--- NOTE | 2020-06-30 11:25 | NUR ---
Assess due to notification of pt with diabetic wound, toes-wound care has described as minor. Hx DMI, opiod dependency, depression/anxiety and medical noncompliance. Pt reports good appetite, has gained about 25 lb over COVID pandemic and prefers to keep wts around 185 lb. Voiced no nutrition concerns, able to make own meal selections for carb control diet. BG 187-315. No recent A1C. Low nutrition risk, no extra supplementation needed as pt reports eating high protein foods and intake is good.
--- NOTE | 2020-06-30 12:07 | HC ---
[facility] [place] [address] CONSULTATION Name: CARLOS STAHL Room #: 433-I ADM IN ..#: [id number] Admission: 06/28/20 Attend Phys: Vance Geiger MD Discharge: Date of : 83 Report #: [id number] THIS REPORT FOR: cc: NO FAMILY PHYSICIAN or PCP NO FAMILY PHYSICIAN or PCP Aly Cordero MD ~ DATE OF SERVICE: 06/29/2020 WOUND CARE CONSULTATION PERSONAL PHYSICIAN: Not on staff. CHIEF COMPLAINT: Left foot toe ulcers with cellulitis. HISTORY OF PRESENT ILLNESS: This is a 35-year-old white male with a history of poorly controlled diabetes, who presented to the Emergency Department yesterday with complaints of pain in his bilateral second and third toes. The patient states that he started having drainage coming from the left toes in the past 24 hours. The patient states that he started having significant pain in his right groin with some lymphadenopathy noted. Because of all the pain, he decided to come to the Emergency Department to be evaluated. The patient was then admitted for concerns about cellulitis in his feet. The patient denies fevers or chills. The patient denies any other associated symptoms at this time. We have been asked to follow the patient for his toe ulcerations, which are chronic. PAST MEDICAL HISTORY: Significant for type 1 diabetes, history of AFib with ablation in 2009, previous history of MRSA foot wounds and requiring amputation of bilateral great toes secondary to osteomyelitis, chronic kidney disease, anxiety, peripheral neuropathy. CURRENT MEDICATIONS: Multiple, I reviewed the patient's medication list. DRUG ALLERGIES: MORPHINE AND ZYVOX and IV DYE. SOCIAL HISTORY: The patient does not smoke. Drinks alcohol socially. FAMILY HISTORY: Not pertinent to current medical condition. REVIEW OF SYSTEMS: CONSTITUTIONAL: The patient denies fevers or chills. NEUROLOGIC: The patient complains of significant neuropathy in both feet. Denies numbness, tingling, weakness in the upper extremities. Denies headache. EYES: No complaints. ENT: No complaints. CARDIAC: The patient denies chest pain or palpitations. Does have some mild [facility] [address] [place] [address] CONSULTATION Name: CARLOS STAHL Sanjay Room #: 433-I [facility]#: [id number] Admission: 06/28/20 Attend Phys: Vance Geiger MD Discharge: Date of : 83 Report #: [id number] peripheral edema. RESPIRATORY: The patient denies shortness of breath, cough or wheezes. GASTROINTESTINAL: The patient denies nausea, vomiting, abdominal pain. GENITOURINARY: The patient denies urgency or frequency. MUSCULOSKELETAL: No complaints. SKIN: The patient complains of chronic ulcerations on bilateral second and third toes as well as lymphadenopathy in the right groin. PHYSICAL EXAMINATION: VITAL SIGNS: Temperature 36.9, pulse 101, respirations 18, BP 138/103. GENERAL: This is an alert and oriented x 3, pleasant white male who is in no obvious distress. HEENT: Normocephalic, atraumatic. Mucous membranes are somewhat dry. Pupils are round. Sclerae white. NECK: Without JVD. LUNGS: Clear. HEART: Regular. ABDOMEN: Soft, nontender. EXTREMITIES: The patient moves all extremities without difficulty. There is trace to 1+ edema bilateral lower extremities and evaluation of bilateral second and third toes reveals chronic ulcers of the second and third toes, which have serous drainage. There is increased erythema and warmth of these toes as well. The patient has 2+ dorsalis pedis and posterior tibial pulses. Bilateral heels are intact. NEUROLOGIC: Cranial nerves 2-12 grossly intact. Motor and sensory grossly intact. SKIN: Evaluation of right groin does reveal a lymphadenopathy which is tender to palpation, but no open areas. LABORATORY DATA: White count 7.8, hemoglobin 12.1, BUN 14, creatinine 1.4, albumin 3.1. IMPRESSION: 1. Chronic ulcerations, bilateral second and third toes with cellulitis. 2. Diabetes mellitus. 3. Protein-calorie malnutrition -- moderate with an albumin of 3.1. 4. History of noncompliance. PLAN: At this time, we will start silver alginate to the toes daily. This will help absorb the drainage and help it to heal. The patient is already on IV antibiotics, which we will continue. Make sure we [place] [address] CONSULTATION Name: CARLOS STAHL Room #: 433-I ADM IN M.R.#: [id number] Admission: 06/28/20 Attend Phys: Vance Geiger MD Discharge: Date of : 83 Report #: [id number] protein supplementation for continued healing. Utilize physical and occupational therapy for strengthening. Continue all other current medications. <ELECTRONICALLY SIGNED> By: Aly Cordero MD 06/30/20 1207 1200 2039 Aly Cordero MD /nt
--- NOTE | 2020-06-30 13:58 | NUR ---
Received awake on bed. Due medications given as prescribed, able to swallow meds w/o difficulty. On room air. Vital signs stable. On MS, not on telemetry; no complains and signs of chest pain, crushing sensation and heaviness. On carb controlled- tolerating well; no nausea, no vomiting and no abdominal pain noted. On blood sugar monitoring, taken and recorded accordingly; with sliding scale insulin ordered- pt dictates how much insulin is he going to have- physicians aware re: this. Continent of bowel and bladder, able to go the toilet independently. Independent with ADLs, up ad rahul. With NS at 125cc/hr, infusing well at R AC. With bilateral feet dressing; C/D/I- patient seen and examined by wound nurse Laureano- dressing changed and he said no need to take photo. Upon assessing patient this AM, patient complaining of panic attacks and no one has been addressing this- informed patient that he has been given medications earlier and will inform Dr Geiger re: this so he can prescribe medications; patient upset re: this and kept him updated re: orders. Orders obtained for Xanax PO- given as prescibed. Discharge orders made by Dr Geiger. Discharge instructions, follow up schedule given and instructed; pt acknowledged understanding re: instructions; verified that we have correct pharmacy on record- pt agreed it is correct. With medications kept from pharmacy- returned prior to discharge. IV discontinued. No telemetry noted. Patient discharged, TITLE ONE TEACHER walked with patient out of the unit with his personal belongings. Pt called unit and requested for his prescriptions to be transferred to [facility] instead of [facility]- Dr Geiger informed re: this; tried to call [facility] to have prescription transferred but they said that the patient has to do this- Called patient and informed him re: this. Patient left his residency director- informed him re: this- sent to security. Pt called back the unit complaining that he wanted his Oxycodone prescribed instead of Oxycontin- informed pt that only the physician can make these changes- Dr Geiger and PLASTICS SHEET FINISHING PRESS OPERATOR Merline informed re: this.
== END 2020-06-30 13:23 | disposition home or self-care (01) | DRG 872 ==
LOC: ER 20:23 → EROBS 22:39 → 4S 22:39
PROVIDERS: Emergency Medicine; Nurse Practitioner Family; ADMIT Hospitalist; ATTEND Hospitalist
DX: A41.9 Sepsis, unspecified organism (principal); L03.116 Cellulitis of left lower limb; L03.115 Cellulitis of right lower limb; E44.0 Moderate protein-calorie malnutrition; F11.20 Opioid dependence, uncomplicated; F32.9 Major depressive disorder, single episode, unspecified; I48.91 Unspecified atrial fibrillation; L97.529 Non-pressure chronic ulcer of other part of left foot with unspecified severity; R59.1 Generalized enlarged lymph nodes; E10.621 Type 1 diabetes mellitus with foot ulcer; L97.519 Non-pressure chronic ulcer of other part of right foot with unspecified severity; E10.65 Type 1 diabetes mellitus with hyperglycemia; F10.10 Alcohol abuse, uncomplicated; G89.4 Chronic pain syndrome; E10.42 Type 1 diabetes mellitus with diabetic polyneuropathy; N18.30 Chronic kidney disease, stage 3 unspecified; F41.9 Anxiety disorder, unspecified; Z89.412 Acquired absence of left great toe; Z89.411 Acquired absence of right great toe; Z88.8 Allergy status to other drugs, medicaments and biological substances; Z98.42 Cataract extraction status, left eye; Z98.41 Cataract extraction status, right eye; Z88.6 Allergy status to analgesic agent; Z91.041 Radiographic dye allergy status; Z86.14 Personal history of Methicillin resistant Staphylococcus aureus infection; Z68.28 Body mass index [BMI] 28.0-28.9, adult; Z79.4 Long term (current) use of insulin; Z91.14 Patient's other noncompliance with medication regimen; Z71.41 Alcohol abuse counseling and surveillance of alcoholic
CPT/HCPCS: 10195